=== PATIENT | female | born 2000 | race Caucasian/White ===

== ENCOUNTER 2024-03-01 18:12 | Emergency (ER) | payer OTHER, SELFPAY ==
[2024-03-01 18:13] VITALS: BP 143/92; PULSE 112; RESP 16; TEMP 36.6; O2SAT 95; BMI 25.5
--- NOTE | 2024-03-01 18:50 | CT_ITS ---
EXAM: CT ABDOMEN AND PELVIS WITH INTRAVENOUS CONTRAST CLINICAL INDICATION: abd pain -- IV PO Contrast TECHNIQUE: Helically acquired images were obtained of the abdomen and pelvis with intravenous contrast. This CT exam was performed using one or more of the following dose reduction techniques: automated exposure control, adjustment of the mA and/or kV according to patient size, and/or use of iterative reconstruction technique. CONTRAST: Oral and amp; IV Gastrografin and amp; 100mL Isovue-370 COMPARISON: No relevant prior studies available. FINDINGS: LOWER THORAX: No significant abnormality. Lung bases are clear. No cardiomegaly. No significant pericardial effusion. ABDOMEN: LIVER: No significant abnormality. Homogeneous. No focal mass. GALLBLADDER AND BILE DUCTS: No significant abnormality. No calcified gallstones. No gallbladder distention or wall edema. No intra- or extrahepatic biliary ductal dilation. PANCREAS: No significant abnormality. No focal cystic or solid mass. SPLEEN: No significant abnormality. Normal size without focal cystic or solid mass. ADRENALS: No significant abnormality. No nodules. KIDNEYS AND URETERS: No significant abnormality. Normal renal size and position. No hydronephrosis. STOMACH AND BOWEL: Large volume rectal stool retention without rectal wall thickening. No stomach or bowel distention. PELVIS: APPENDIX: There is a normal-appearing appendix in the right lower quadrant. BLADDER: No significant abnormality. REPRODUCTIVE: Right adnexal simple appearing cyst measuring approximately 3.1 cm. ACR White Paper guidelines (Guadalupe, et. al. JACR 2020;17(2):248-254) suggest no follow-up is necessary. ABDOMEN and PELVIS: INTRAPERITONEAL SPACE: No significant abnormality. No ascites or other fluid collection. No free air. BONES/JOINTS: No significant abnormality. No suspicious lytic or blastic abnormality. SOFT TISSUES: No significant abnormality. No discrete abdominal or pelvic wall hernia. VASCULATURE: No significant abnormality. Abdominal aorta is non-dilated. LYMPH NODES: No significant abnormality. No enlarged lymph nodes. CT/Abdomen/Pelvis WITH Contrast IMPRESSION: Large volume rectal stool retention without rectal wall thickening. No additional acute findings. Electronically Signed: Piero Galarza DO at 21:13 EDT ,
[2024-03-01 19:08] LABS: Mucous, Urine 0 SEEN /hpf (<or=2+); Red Blood Cells-Urine 0 SEEN /hpf (0-5); White Blood Cells 0 SEEN /hpf (0-5)
[2024-03-01 19:09] LABS: Color, Urine Straw (Yellow); Glucose, Dipstick Normal (Normal); Ketone-Dipstick Negative (Negative); Leukocyte Esterase-Dipstick Negative /ul (Negative); Nitrite-Dipstick Negative (Negative); Occult Blood-Urine Negative /ul (Negative); Protein-Dipstick Negative (Negative); Urine Bilirubin Dipstick Negative (Negative); Urine Clarity Clear (Clear); Urine Urobilinogen Normal (Normal)
[2024-03-01 19:17] LABS: Bacteria 1+ /hpf (None Seen); Squamous Epithelial Cells - UA 0-5 SEEN /hpf (5-10)
[2024-03-01 19:28] LABS: Absolute Lymphocyte Count 2.26 X10^3/uL (0.83-4.51); Absolute Neutrophil Count 4.7 X10^3/uL (2.0-7.7); Basophil# 0.05 X10^3/uL; Basophil% 0.7 % (0-1); Eosinophil# 0.08 X10^3/uL; Eosinophils% 1.1 % (0-5); Hematocrit 44.9 % (37-47); Hemoglobin 14.9 g/dL (12.0-15.0); Lymphocyte # 2.26 X10^3/ul (0.83-4.51); Lymphocyte % 29.7 % (19-41); Mean Corp Hgb Conc 33.2 g/dL (32-36); Mean Corpuscular Hgb 30.3 pg (27.0-32.0); Mean Corpuscular Volume 91.4 fL (81-99); Mean Platelet Vol. 8.8 fl (6.2-12.0); Monocyte# 0.53 X10^3/uL; NRBC Flagged by Analyzer 0 % (0-5); Neutrophil # 4.66 X10^3/uL (2.7-7.7); Neutrophil % 61.1 % (47-70); Platelet Count 335 K/mm3 (150-450); RBC Distribution Width CV 11.8 % (11.6-14.6); RBC Distribution Width SD 39.3 fl (35.1-43.9); Red Blood Count 4.91 M/mm3 (4.2-5.4); White Blood Count 7.6 K/mm3 (4.4-11.0)
[2024-03-01 19:36] LABS: Internal QC Validated? YES +Cl - CLEAR BKGD; Pregnancy, Serum, hCG Quali. NEGATIVE Negative; Record Kit Lot#, Serum Preg. 772476
[2024-03-01 19:44] LABS: AST(SGOT) 16 U/L (15-37); Alanine Aminotransfer ALT/SGPT 26 U/L (13-56); Albumin, Serum 3.9 g/dL (3.2-5.0); Alkaline Phosphatase 88 U/L (45-117); Anion Gap 4 (5-15); BUN 5 mg/dL (7-18); BUN/Creat Ratio 7.8 RATIO (10-20); Calcium,Total 9.2 mg/dL (8.5-10.1); Chloride 105 mmol/L (98-107); Creatinine, Serum 0.64 mg/dL (0.55-1.02); EST Glomerular Filtration Rate 124 mL/min (>60); Est Glom Filt Rate - Afr Amer 151 mL/min (>60); Estimated Creatinine Clearance 141.11 ml/min; Glucose 97 mg/dL (74-106); Lipase 22 U/L (13-75); Potassium 3.6 mmol/L (3.5-5.1); Protein, Total 7.9 g/dL (6.4-8.2); Sodium Level 138 mmol/L (136-145)
[2024-03-01 20:13] VITALS: BP 128/74; PULSE 105; RESP 16; TEMP 36.8; O2SAT 100
--- NOTE | 2024-03-01 20:50 | EX.ED.DYSGE1 ---
HPI History of Present Illness Chief Complaint: Abd Pain Informant: patient Narrative Narrative: Patient presents secondary to abdominal pain. She states her whole life she has had problems with abdominal pain. It is been worsening over the past couple of months. Tonight she had pain that presented as a wave across her abdomen and up into her chest that took her breath away. This is what prompted her to come to the emergency room tonight. She has never been evaluated for her abdominal pain. She denies fever or chills. She denies urinary symptoms. [facility] Medical History Anxiety Depression Home Medications ?Medication ?Instructions ?Recorded ?Last Taken ?Type NK 03/01/24 Unknown History polyethylene glycol 3350 17 17 g PO DAILY PRN constipation 03/01/24 Unknown Rx gram/dose oral powder (Miralax) #119 grams Allergy/AdvReac Type Severity Reaction Status Date / Time No Known Allergies Allergy Verified 03/01/24 18:16 Family History Other Diabetes Hypertension Surgical History no surgical history Social History Smoking Status: Never smoker ROS ROS ED Constitutional Constitutional ED: Denies chills or fever(s) Eyes Eyes: Denies discharge from eye(s) ENT ENT ED: Denies discharge from eye(s), rhinorrhea or sore throat Cardiovascular Cardiovascular: Denies chest pain Respiratory/Chest Respiratory/Chest: Denies cough or dyspnea Gastrointestinal Gastrointestinal: Reports abdominal pain; Denies diarrhea, nausea or vomiting Genitourinary Genitourinary ED: Denies dysuria or hematuria Musculoskeletal Musculoskeletal: Denies back pain or extremity pain Integumentary Denies Abrasions or rash Neurologic Neurologic: Denies headache(s) or weakness Psychiatric Psychiatric: Reports anxiety; Denies depression Allergic/Immunologic Allergic/Immunologic ED: Denies lip swelling or urticaria EXAM Physical Exam Const Vital Signs: 03/01/24 18:13 03/01/24 20:13 03/01/24 22:12 Temperature 98 F 98.3 F Temperature Source Temporal Oral Pulse Rate 112 H 105 H 91 Respiratory Rate 16 16 16 Blood Pressure 143/92 H 128/74 H Blood Pressure Mean 109 92 Pulse Ox 95 100 99 Oxygen Delivery Method Room Air Room Air Room Air 03/01/24 22:12 Temperature 98.3 F Temperature Source Pulse Rate 91 Respiratory Rate 16 Blood Pressure 120/61 Blood Pressure Mean 80 Pulse Ox 99 Oxygen Delivery Method Positive well nourished and well developed General Appearance ED: well developed HEENT Reports moist mucous membranes Eyes EOMs intact bilaterally Chest Wall inspection of chest normal and palpation of chest normal Resp normal respiratory effort and clear to auscultation bilaterally Cardio regular rate and regular rhythm GI GI Narrative: Abdomen soft with mild diffuse tenderness. No guarding or rebound. No palpable masses. Hypoactive bowel sounds are noted. Back/Spine no CVA tenderness Extremity normal to inspection Neuro oriented x3 and no sensory deficits noted Motor Exam: strength 5/5 throughout Psych Mood & Affect: tearful Skin no rashes or lesions noted MDM MDM MDM Narrative Medical decision making narrative: IV line established. Patient declines anything for pain. Labwork obtained to evaluate for leukocytosis, anemia, and electrolyte derangement. Urinalysis obtained to evaluate for infection/hematuria. CT scan of the abdomen and pelvis with p.o. and IV contrast will be obtained to evaluate for any evidence of ulcerative colitis, Crohn's, IBS, appendicitis. History & Record Review Discussion w/independent historian: Patient and Family Lab Data Attestation: I reviewed the patient's lab results. Labs: Laboratory Results - last 24 hr 03/01/24 03/01/24 19:00 19:08 WBC 7.6 RBC 4.91 Hgb 14.9 Hct 44.9 MCV 91.4 MCH 30.3 MCHC 33.2 RDW Std Deviation 39.3 RDW Coeff of Micaela 11.8 Plt Count 335 MPV 8.8 Immature Gran % (Auto) 0.400 Neut % (Auto) 61.1 Lymph % (Auto) 29.7 [place] % (Auto) 7.0 Eos % (Auto) 1.1 Baso % (Auto) 0.7 Absolute Neuts (auto) 4.7 Absolute Lymphs (auto) 2.26 Nucleated RBC % 0 Sodium 138 Potassium 3.6 Chloride 105 Carbon Dioxide 29.0 Anion Gap 4 L BUN 5 L Creatinine 0.64 Estim Creat Clear Calc 141.11 Est GFR (MDRD) Af Amer 151 Est GFR (MDRD) Non-Af 124 BUN/Creatinine Ratio 7.8 L Glucose 97 Calcium 9.2 Total Bilirubin 1.20 H Direct Bilirubin 0.30 AST 16 ALT 26 Alkaline Phosphatase 88 Total Protein 7.9 Albumin 3.9 Globulin 4.0 Lipase 22 Serum , Qual NEGATIVE Urine Color Straw Urine Clarity Clear Urine pH 7.0 Ur Specific Jenners 1.010 Urine Protein Negative Urine Glucose (UA) Normal Urine Ketones Negative Urine Occult Blood Negative Urine Nitrite Negative Urine Bilirubin Negative Urine Urobilinogen Normal Ur Leukocyte Esterase Negative Urine RBC 0 SEEN Urine WBC 0 SEEN Ur Squamous Epith Cells 0-5 SEEN Urine Bacteria 1+ Urine Mucus 0 SEEN Radiography Diagnostic Testing: Clinical Impression(s) from Imaging Studies Abdomen/Pelvis CT 03/01/24 18:50 IMPRESSION: Large volume rectal stool retention without rectal wall thickening. No additional acute findings. Electronically Signed: Piero Galarza DO at 21:13 EDT , Treatment and Re-Evaluation :: CBC was normal white count 7.6 with a hemoglobin of 14.9. Normal differential. Chemistry studies unremarkable. LFTs significant only for a total bili of 1.2. Lipase is normal at 22. test is negative. Urinalysis reveals 1+ bacteria with 0-5 epithelial cells and no white cells. No nitrites are appreciated. CT scan of the abdomen and pelvis with contrast reveals large volume of rectal stool retention without rectal wall thickening. No additional acute findings. Test results discussed with the patient. I have written her a prescription for MiraLAX. I will also refer her to GI for follow-up as needed as she does report a longstanding history of abdominal pain problems. Patient comfortable with the plan. Return instructions given. Discharge Plan Triage Chief Complaint: Abd Pain ED Provider: Madison Angulo Dx/Rx/DC Orders Clinical Impression: Abdominal pain, Constipation Instructions: ED Abdominal Pain Unkn Cause Fem, ED Constipation (Adult) Prescriptions: New polyethylene glycol 3350 [Miralax] 17 gram/dose powder 17 g PO DAILY PRN (Reason: constipation) Qty: 119 0RF No Action NK Primary Care Provider: Care Physician,No Primary Referrals: Emanuel Jacobson DO [Med Staff - Active Staff] - As Needed Care Physician,No Primary [Primary Care Provider] - Print Language: Yoruba Disposition Disposition: Home, Self Care Discharge Date/Time: 03/01/24 22:15
[2024-03-01 22:12] VITALS: BP 120/61; PULSE 91; RESP 16; TEMP 36.8; O2SAT 99
== END 2024-03-01 22:15 | disposition home or self-care (01) ==
PROVIDERS: Emergency Provider Emergency Medicine; Visit Provider Emergency Medicine
DX: K59.00 Constipation, unspecified (principal); R10.9 Unspecified abdominal pain
CPT/HCPCS: 74177; 80048; 80076; 81001; 83690; 84703; 85025; 99283; Q9967

== ENCOUNTER → 2024-11-11 | Outpatient (CLI) | payer OTHER, SELFPAY ==
[2024-11-11 10:56] LABS: Erythrocyte Sedimentation Rate 8 mm/hr (0-30)
[2024-11-11 10:58] LABS: Absolute Lymphocyte Count 1.88 X10^3/uL (0.83-4.51); Absolute Neutrophil Count 2.4 X10^3/uL (2.0-7.7); Basophil# 0.04 X10^3/uL; Basophil% 0.8 % (0-1); Eosinophil# 0.06 X10^3/uL; Eosinophils% 1.2 % (0-5); Hemoglobin 13.6 g/dL (12.0-15.0); Lymphocyte # 1.88 X10^3/ul (0.83-4.51); Mean Corp Hgb Conc 33.2 g/dL (32-36); Mean Corpuscular Hgb 30.9 pg (27.0-32.0); Mean Corpuscular Volume 93.2 fL (81-99); Monocyte# 0.42 X10^3/uL; Monocyte% 8.7 % (0-10); NRBC Flagged by Analyzer 0 % (0-5); Neutrophil # 2.41 X10^3/uL (2.7-7.7); Neutrophil % 50.1 % (47-70); Platelet Count 309 K/mm3 (150-450); RBC Distribution Width CV 11.7 % (11.6-14.6); RBC Distribution Width SD 39.9 fl (35.1-43.9); White Blood Count 4.8 K/mm3 (4.4-11.0)
[2024-11-11 12:51] LABS: ALB/GLOB Ratio 1.5 RATIO (0.9-2.4); AST(SGOT) 19 U/L (<=31); Alanine Aminotransfer ALT/SGPT 15 U/L (<=34); Albumin, Serum 4.5 g/dL (3.5-5.0); Alkaline Phosphatase 87 U/L (35-104); Anion Gap 11 (5-15); BUN 8 mg/dL (4-19); BUN/Creat Ratio 12.4 RATIO (10-20); Calcium,Total 9.4 mg/dL (7.6-11.0); Carbon Dioxide 24.8 mmol/L (21.0-32.0); Chloride 106 mmol/L (98-108); Creatinine, Serum 0.64 mg/dL (0.70-1.20); EST Glomerular Filtration Rate 128 (>60); Glucose 95 mg/dL (70-99); Potassium 4.2 mmol/L (3.3-5.1); Protein, Total 7.6 g/dL (5.9-8.4); Sodium Level 141 mmol/L (133-145); Thyroid Stim Hormone (TSH) 0.675 uIU/mL (0.300-4.200); Total Bilirubin 1.23 mg/dL (0.00-1.30)
[2024-11-11 13:04] LABS: CRP < 3.00 mg/L (0.0-3.0)
[2024-11-14 16:08] LABS: Endomysial Antibody IgA Negative (Negative); Immunoglobulin A 311 mg/dL (87-352); t-Transglutaminase IgA <2 U/mL (0-3)
== END | disposition home or self-care (01) ==
PROVIDERS: PCP Nurse Practitioner Family; Referring Provider Student in an Organized Health Care Education/Training Program; Visit Provider Student in an Organized Health Care Education/Training Program
DX: K59.09 Other constipation (principal)
CPT/HCPCS: 36415; 80053; 82784; 83516; 84443; 85025; 85652; 86003; 86005; 86140; 86255

== ENCOUNTER → 2024-11-22 | Outpatient (CLI) | payer OTHER, SELFPAY ==
[2024-11-25 02:07] LABS: Calprotectin, Stool 14 ug/g (0-120)
== END | disposition home or self-care (01) ==
LOC: LABSPEC 16:25
PROVIDERS: PCP Nurse Practitioner Family; Referring Provider Student in an Organized Health Care Education/Training Program; Visit Provider Student in an Organized Health Care Education/Training Program
DX: K59.09 Other constipation (principal)
CPT/HCPCS: 83993

== ENCOUNTER → 2025-04-11 | Outpatient (CLI) | payer OTHER, SELFPAY ==
--- NOTE | 2025-04-11 10:24 | RAD_ITS ---
EXAM: XR Cervical Spine, 2 or 3 Views CLINICAL INDICATION: R NECK PAIN, UNSURE OF INJURY TECHNIQUE: Frontal and lateral views of the cervical spine. COMPARISON: No relevant prior studies available. FINDINGS: VERTEBRAE: Unremarkable. No definite fracture. Normal alignment. DISC SPACES: No acute findings. No significant narrowing. SOFT TISSUES: Unremarkable. RAD/Cerv Spine 2 or 3 Views IMPRESSION: No acute fracture. Reading [facility]
--- OUTSIDE RECORDS SUMMARY | 2025-04-11 18:23 | XMS RPT_ITS | CCD ---
Author Organization [facility] Providers Care Podiatry Teacher Name Role Phone CHRISTINA GIBSON Unavailable Unavailable REFERRED, SELF Unavailable Unavailable JACQUELYN LA Unavailable Unavailable ECTOR ESPOSITO Unavailable Unavailable REFERRED, SELF Unavailable Unavailable JACQUELYN LA Unavailable Unavailable REFERRED, SELF Unavailable Unavailable JACQUELYN LA Unavailable Unavailable AMPARO BARNES Unavailable Unavailable Care Physician, No Primary Primary Care Provider Unavailable Care Physician, No Primary Referring Provider Un available Fabiola Meier Attending Provider Jeannie SENIOR INTERACTION DESIGNER-CPalak Primary Care Provider Fabiola Meier Referring Provider Quinn Schneider Attending Unavailable Care Physician, No Primary Primary Care Unava ilable Care Physician, No Primary Referring Unava ilable Fabiola Griggs Attending Unavailable Care Physician, No Primary Primary Care Unava ilable Care Physician, No Primary Referring Unava ilable Fabiola Griggs Attending Unavailable Jeannie SENIOR INTERACTION DESIGNERPalak Primary Care Unavailable Palak Nielson NP Referring Unavailable Fabiola Griggs Attending Unavailable Fabiola Griggs Referring Unavailable Palak Nielson NP Primary Care Unavailable Fabiola Griggs Attending Unavailable AtanasFabiola jones Referring Unavailable Palak Nielson NP Primary Care Unavailable Madison Angulo Attending Unavailable Care Physician, No Primary Primary Care Unava ilable PALAK NIELSON CHEMICAL ENGINEERING INTERN Admitting Unavailable PALAK NIELSON CHEMICAL ENGINEERING INTERN Attending Unavailable PALAK NIELSON CHEMICAL ENGINEERING INTERN Consulting Unavailable PALAK NIELSON CHEMICAL ENGINEERING INTERN Primary Care Unavailable PROVIDER, UNKNOWN Consulting Unavailable PROVIDER, UNKNOWN Consulting Unavailable Jeannie SENIOR INTERACTION DESIGNER-CPalak Primary Care Provider Jeannie SENIOR INTERACTION DESIGNER-CaPlak Referring Provider Fabiola Meier Attending Provider Moomaw SENIOR INTERACTION DESIGNER-C, Galdino Attending Provider [phone] Medications Current Medications Medication Drug Class(es) Dates Sig (Normalized) Sig (Original) cyclobenzaprine hydrochloride 10 mg oral tablet (1 source) Muscle Relaxant Start: 04-11-2025 take 1 tablet by mouth three times daily as needed for muscle spasms Cyclobenzaprine 10 mg tablet Active 10 mg PO THREE TIMES A DAY as needed for muscle spasm 14 April 11, 2025 12:00am dicyclomine hydrochloride 10 mg oral capsule (3 sources) Anticholinergic Start: 11-11-2024 take 1 capsule by mouth twice daily as needed for pain Dicyclomine 10 mg capsule Active 10 mg PO TWICE A DAY as needed for abdominal pain 30 November 11, 2024 12:00am predniSONE 50 mg oral tablet (1 source) Start: 04-11-2025 take 1 tablet by mouth once daily Prednisone 50 mg tablet Active 50 mg PO daily 5 April 11, 2025 12:00am Completed/Discontinued Medications Medication Drug Class(es) Dates Sig (Normalized) Sig (Original) benzonatate 100 mg oral capsule (3 sources) Non-narcotic Antitussive Start: 4 End: 5 take 1 capsule by mouth three times daily as needed for cough Benzonatate 100 mg capsule Discontinued 100 mg PO THREE TIMES A DAY as needed for cough 20 April 20, 2024 12:00am December 30, 2024 9:42am linaclotide 0.072 mg oral capsule (3 sources) Guanylate Cyclase-C Agonist Start: 5 End: 5 take 1 capsule by mouth once daily in the morning Linaclotide (Linzess) 72 mcg capsule Discontinued 72 ug PO EVERY MORNING 30 November 11, 2024 12:00am November 11, 2024 11:53am lubiprostone 0.008 mg oral capsule (3 sources) Chloride Channel Activator Start: 5 End: 5 take 1 capsule by mouth twice daily Lubiprostone (Amitiza) 8 mcg capsule Discontinued 8 ug PO TWICE A DAY 60 November 11, 2024 12:00am December 30, 2024 9:41am methylPREDNISolone 4 mg oral tablet (3 sources) Corticosteroid Start: 4 End: 5 take 1 tablet by mouth once Methylprednisolone (Medrol (Cristofer)) 4 mg tablets,dose pack Discontinued 0 PO per package directions 21 0 April 20, 2024 12:00am December 30, 2024 9:41am PO PER PKG DIR polyethylene glycol 3350 57504 mg powder for oral solution (3 sources) Osmotic Laxative Start: 4 End: 5 Polyethylene Glycol 3350 (Miralax) 17 gram/dose powder Discontinued 17 g PO DAILY as needed for constipation 119 0 March 01, 2024 10:03pm November 11, 2024 9:57am Problems Problem Classification Problem Date Documented Da te Episodic/Chronic Abdominal pain (4 sources) Abdominal pain; Translations: [Unspecified abdominal pain] Onset: 03-17-2024 03-09-2024 Episodic Anxiety disorders (1 source) Generalized anxiety disorder; Translations: [Generalized anxiety disorder] Onset: 03-03-2025 Chronic Mood disorders (1 source) Major depressive disorder, recurrent, mild; Translations: [Major depressive disorder, recurrent, mild] Onset: 03-03-2025 Chronic Other gastrointestinal disorders (2 sources) Irritable bowel syndrome; Translations: [Irritable bowel syndrome without diarrhea] 11-11-2024 Chronic Other gastrointestinal disorders (1 source) Mixed irritable bowel syndrome; Translations: [Mixed irritable bowel syndrome] Onset: 03-03-2025 Chronic Other gastrointestinal disorders (6 sources) Chronic constipation; Translations: [Other constipation] 11-11-2024 Episodic Other gastrointestinal disorders (3 sources) Constipation; Translations: [Constipation, unspecified] 03-09-2024 Episodic Other gastrointestinal disorders (1 source) Other constipation; Translations: [Other constipation] Onset: 11-28-2024 Episodic Other screening for suspected conditions (not mental disorders or infectious disease) (2 sources) Encounter for screening for diabetes mellitus; Translations: [Encounter for screening for cardiovascular disorders] Onset: 03-03-2025 Episodic Residual codes; unclassified (1 source) Other general symptoms and signs; Translations: [Other general symptoms and signs] Onset: 03-03-2025 Episodic Residual codes; unclassified (1 source) Sleep disorder, unspecified; Translations: [Sleep disorder, unspecified] Onset: 03-03-2025 Episodic Sprains and strains (1 source) Strain of right trapezius muscle; Translations: [Strain of other muscles, fascia and tendons at shoulder and upper arm level, right arm, initial encounter] 04-11-2025 Episodic Results Test Name Value Interpretation Reference Range Facility Gastroenterology Visit Repor ton 12-30-2024 Gastroenterology Visit Report [facility] Gastroenterology [address] [place] [address] OFFICE VISIT Date of Service: 12/30/24 MR#: [id number] Acct: [id number] Name: LACHELLE MONROE Rep #: [id number] : 2000 Provider: PARAS Bernal Age/Sex: 24/F Location: [facility] [place] Status: Signed Intake Vital Signs 04/20/24 12:25 Height 5 ft 6 in Weight: 157 lb 4 oz BMI 25.3 BP 112/66 Blood Pressure Location Rt brachial Position Sitting Respiration 16 Pulse 99 Pulse Source NIBP Temp 99.1 F Temp Source Temporal Pulse Oximetry (%) 98 Oxygen Delivery Method room air Intake Visit Reasons: follow up Chief Complaint: constipation Allergies No Known Allergies Allergy (Verified 12/30/24 09:41) Medications ???Medication ???Instructions ???Recorded ???Confirmed ???Type dicyclomine 10 mg capsule 10 mg PO BID PRN abdominal pain 12/30/24 Rx #30 caps Nurse's Note: Patient is here for a follow up states she hasn't had any terrible pain issues she is trying to eat less. Amitiza was causing dizziness, patient took it morning of the bad pain ended up leaving work due to side effects. [facility] History Anxiety Depression Surgical History No significant past surgical history Family History Other Diabetes Hypertension Social History Smoking Status: Never smoker HPI HPI Chief Complaint: constipation Details: LACHELLE MONROE, is a 24 F who presents to the office today for f/u. BGI established 4.4.25 with constipation and abdominal pain for a few years. Having bm every other day but is small and incomplete. Refractory to miralax. Occasional abd cramping and loose stool she feels related to anxiety. No hx of EGD or colonoscopy. Start Linzess 72 mcg and dicyclomine PRN. *INS denied Linzess, Amitiza started instead Biochemical work up .12.02; CBC, CMP, ESR, CRP Food allergy, Celiac all without abnormality Stool 11.22.24; Calprotectin normal, OV 12.30.24 Pt has been doing well. She started Amitiza however she had dizziness and headache after taking one dose so she discontinued it. SHe continues to have constipation with a bm every day to every other day. She has not had to take the dicyclomine at all. She has some nausea but no vomiting. She notes she had one day of burning RLQ pain which eventually resolved Pt denies diarrhea, vomiting, heartburn or blood in her stool. ROS Const Constitutional: Positive for fatigue Eyes Eyes: No change in vision ENT ENT: No abnormal hearing, difficulty swallowing, mouth lesions, tongue swelling or throat swelling Resp Respiratory: No cough or shortness of breath Cardio Cardiology: Positive for leg pain with exertion Gastro GI: Positive for abdominal pain, bloating, constipation and Blood in stool; No difficulty swallowing Genitourinary-Female: No difficulty urinating or burning urination Musc Musculoskeletal: Positive for joint pain, muscle cramps, restless legs and leg pain with exertion Skin Skin: No hair loss in leg, yellowing of the eye, itchy eyes, rash, skin ulcer or skin swelling Neuro Neurology: Positive for restless legs; No abnormal hearing Psych Psychiatric: Positive for anxiety, Positive for depression and Positive for inattentiveness Endo Endocrine: Positive for fatigue Aller/Imm Allergy/Immunologic: No itchy eyes, throat swelling or tongue swelling Lencho/Lymp Hematologic/Lymphatic: Positive for easy bruising Exam Const General: cooperative and healthy appearing [facility] Head: normal to inspection Eyes General: appearance normal, both eyes and all related structures Neck Neck: normal visual inspection Chest Chest palpation inspection: normal inspection of the chest Resp Effort Inspection: normal respiratory effort and able to speak in complete sentences Cardio Rate: regular rate Rhythm: regular rhythm GI Inspection: normal to inspection Auscultation: normal bowel sounds Palpation: soft, no hepatosplenomegaly, no guarding and nontender Assessment and Plan Assessment and Plan (1) Chronic constipation: Status: Chronic Plan: Lachelle is a 24 yo female pt here today for f/u regarding her constipation. Work up including CBC, CMP, food allergies, celiac and calprotectin was all normal. Her constipation is likely related to IBS-C. Pt was prescribed Amitiza however she had side effects including dizziness and headache so she discontinued it. She continues to have constipation with a bm daily to every other day. Pt is nervous about taking medications therefore I have recommended taking miralax and fiber supple (more content not included)... Normal [facility] Calprotectin, Stoolon [address] 14 ug/g Normal 0-120 [facility] Comment on above: Result Comment: Conc entration Interpretation Follow-Up < 5 - 50 ug/g Normal None >50 -120 ug/g Borderline Re-evaluate in 4-6 weeks >120 ug/g Abnormal Repeat as clinically indicated Performed at: [facility] [id number] [place], [place] [id number] Nurse'S Assistant: Kenny Dangelo MD, Phone: [phone] Performed By: #### L 7000.0700 #### [facility] [address] [place], [place], [address] Calprotectin stoolOrdered By : Fabiola Griggs on 11-22-2024 Stool Calprotectin 14 ug/g 0-120 [facility] Comment on above: Concentration Interp retation Follow-Up< 5 - 50 ug/g Normal None>50 -120 ug/g Borderline Re-evaluate in 4-6 weeks >120 ug/g Abnormal Repeat as clinically indicatedPerformed at: [facility] [address] [place], [place] [id number] Director: Kenny Dangelo MD, Phone: [phone] [id number] 11-22-2024 BEEF <0.10 Normal Class 0 [facility] Comment on above: Performed By: #### L 500.4050, L501.9520, L100.0100, L5500.0550, L3410.2400, L101.9900, L501.6710 ####[facility] [address] [place], [address] CHOCOLATE <0.10 Normal Class 0 [facility] Comment on above: Performed By: #### L 500.4050, L501.9520, L100.0100, L5500.0550, L3410.2400, L101.9900, L501.6710 ####[facility] [address] [place], [address] CODFISH <0.10 Normal Class 0 [facility] Comment on above: Performed By: #### L 500.4050, L501.9520, L100.0100, L5500.0550, L3410.2400, L101.9900, L501.6710 ####[facility] [address] [place], [place], [id number] COMMENT Comment Normal . [facility] Comment on above: Result Comment: Tess shen of Specific IgE Class Description of Class ----- < 0.10 0 Negative 0.10 - 0.31 0/I Equivocal/Low 0.32 - 0.55 I Low 0.56 - 1.40 II Moderate 1.41 - 3.90 III High 3.91 - 19.00 IV Very High 19.01 - 100.00 V Very High >100.00 Very High Performed By: #### L 500.4050, L501.9520, L100.0100, L5500.0550, L3410.2400, L101.9900, L501.6710 ####[facility] [address] [place], [address] CORN <0.10 Normal Class 0 [facility] Comment on above: Performed By: #### L 500.4050, L501.9520, L100.0100, L5500.0550, L3410.2400, L101.9900, L501.6710 ####[facility] [address] [place], [address] EGG, WHOLE <0.10 Normal Class 0 [facility] Comment on above: Result Comment: Perf ormed at: [facility] [address] [id number] Nurse'S Assistant: Kenny Dangelo MD, Phone: [phone] Performed By: #### L 500.4050, L501.9520, L100.0100, L5500.0550, L3410.2400, L101.9900, L501.6710 ####[facility] [address] [place], [address] MILK (COW) <0.10 Normal Class 0 [facility] Comment on above: Performed By: #### L 500.4050, L501.9520, L100.0100, L5500.0550, L3410.2400, L101.9900, L501.6710 ####[facility] [address] [place], [address] MUSSELS <0.10 Normal Class 0 [facility] Comment on above: Performed By: #### L 500.4050, L501.9520, L100.0100, L5500.0550, L3410.2400, L101.9900, L501.6710 ####[facility] [address] [place], [address] PEANUT <0.10 Normal Class 0 [facility] Comment on above: Performed By: #### L 500.4050, L501.9520, L100.0100, L5500.0550, L3410.2400, L101.9900, L501.6710 ####[facility] [address] [place], [address] PORK <0.10 Normal Class 0 [facility] Comment on above: Performed By: #### L 500.4050, L501.9520, L100.0100, L5500.0550, L3410.2400, L101.9900, L501.6710 ####[facility] [address] [place], [address] SALMON <0.10 Normal Class 0 [facility] Comment on above: Performed By: #### L 500.4050, L501.9520, L100.0100, L5500.0550, L3410.2400, L101.9900, L501.6710 ####[facility] [address] [place], [address] SHRIMP <0.10 Normal Class 0 [facility] Comment on above: Performed By: #### L 500.4050, L501.9520, L100.0100, L5500.0550, L3410.2400, L101.9900, L501.6710 ####[facility] [address] [place], [place], [phone] SOYBEAN <0.10 Normal Class 0 [facility] Comment on above: Performed By: #### L 500.4050, L501.9520, L100.0100, L5500.0550, L3410.2400, L101.9900, L501.6710 ####[facility] [address] [place], [place], [phone] TUNA <0.10 Normal Class 0 [facility] Comment on above: Performed By: #### L 500.4050, L501.9520, L100.0100, L5500.0550, L3410.2400, L101.9900, L501.6710 ####[facility] [address] [place], [address] WHEAT <0.10 Normal Class 0 [facility] Comment on above: Performed By: #### L 500.4050, L501.9520, L100.0100, L5500.0550, L3410.2400, L101.9900, L501.6710 ####[facility] [address] [place], [place], [id number] Celiac Disease Profileon ENDOMYSIAL IGA Negative Normal Negative [facility] Comment on above: Performed By: #### L 500.4050, L501.9520, L100.0100, L5500.0550, L3410.2400, L101.9900, L501.6710 ####[facility] [address] [place], [address] IMMUNOGLOB A QN 311 mg/dL Normal 87-352 [facility] Comment on above: Result Comment: Perf ormed at: [facility] [address] [id number] Nurse'S Assistant: Praveen Cary PhD, Phone: [phone] Performed By: #### L 500.4050, L501.9520, L100.0100, L5500.0550, L3410.2400, L101.9900, L501.6710 ####[facility] [address] [place], [address] tTG IGA <2 Normal 0-3 [facility] Comment on above: Result Comment: Nega tive 0 - 3 Weak Positive 4 - 10 Positive >10 Tissue Transglutaminase (tTG) has been identified as the endomysial antigen. Studies have demonstr- ated that endomysial IgA antibodies have over 99% specificity for gluten sensitive enteropathy. Performed By: #### L 500.4050, L501.9520, L100.0100, L5500.0550, L3410.2400, L101.9900, L501.6710 ####[facility] [address] [place], [address] Absolute neutrophil countOrd ered By: Fabiola Griggs on 11-11-2024 Neutrophils (Bld) [#/Vol] 2.4 10*3/uL 2.0-7.7 [facility] Anion gap in Serum or Plasma Ordered By: Fabiola Griggs on 11-11-2024 Anion gap [Moles/Vol] 11 mmol/L 5-15 [facility] BUN/creatinine ratioOrdered By: Fabiola Griggs on 11-11-2024 Urea nitrogen/Creatinine [Mass ratio] 12.4 mg/mg 10-20 [facility] Basophil percentageOrdered B y: Fabiola Griggs on 11-11-2024 Basophils/100 WBC (Bld) 0.8 % 0-1 [facility] Beef IgE Qn (S)Ordered By: Nicky Griggs on 11-11-2024 Beef Allergen (RAST) <0.10 kU/L Class 0 [facility] Bilirubin, totalOrdered By: Fabiola Griggs on 11-11-2024 Bilirubin [Mass/Vol] 1.23 mg/dL 0.00-1.30 [facility] CBC W/Diff, Automatedon Absolute Lymph 1.88 X10 3/uL Normal 0.83-4.51 [facility] Comment on above: Performed By: #### L 500.4050, L501.9520, L100.0100, L5500.0550, L3410.2400, L101.9900, L501.6710 #### [facility] [address] [place], [address] Absolute Neut 2.4 X10 3/uL Normal 2.0-7.7 [facility] Comment on above: Performed By: #### L 500.4050, L501.9520, L100.0100, L5500.0550, L3410.2400, L101.9900, L501.6710 #### [facility] [address] [place], [address] Basophils/100 WBC (Bld) 0.8 % Normal 0-1 [facility] Comment on above: Performed By: #### L 500.4050, L501.9520, L100.0100, L5500.0550, L3410.2400, L101.9900, L501.6710 #### [facility] [address] [place], [address] Eosinophils/100 WBC (Bld) 1.2 % Normal 0-5 [facility] Comment on above: Performed By: #### L 500.4050, L501.9520, L100.0100, L5500.0550, L3410.2400, L101.9900, L501.6710 #### [facility] [address] [place], [address] Erythrocyte distribution width (RBC) [Ratio] 11.7 % Normal 11.6-14.6 [facility] Comment on above: Performed By: #### L 500.4050, L501.9520, L100.0100, L5500.0550, L3410.2400, L101.9900, L501.6710 #### [facility] [address] [place], [address] Hematocrit (Bld) [Volume fraction] 41.0 % Normal 37-47 [facility] Comment on above: Performed By: #### L 500.4050, L501.9520, L100.0100, L5500.0550, L3410.2400, L101.9900, L501.6710 #### [facility] [address] [place], [address] Hemoglobin (Bld) [Mass/Vol] 13.6 g/dL Normal 12.0-15.0 [facility] Comment on above: Performed By: #### L 500.4050, L501.9520, L100.0100, L5500.0550, L3410.2400, L101.9900, L501.6710 #### [facility] [address] [place], [address] IG% 0.200 Normal 0.0-0.9 [facility] Comment on above: Result Comment: IG% - Immature Granulocytes (promyelocytes, myelocytes and metamyelocytes) > 1% indicates that a LEFT SHIFT is Present. Performed By: #### L 500.4050, L501.9520, L100.0100, L5500.0550, L3410.2400, L101.9900, L501.6710 #### [facility] [address] [place], [address] Lymphocytes/100 WBC (Bld) 39.0 % Normal 19-41 [facility] Comment on above: Performed By: #### L 500.4050, L501.9520, L100.0100, L5500.0550, L3410.2400, L101.9900, L501.6710 #### [facility] [address] [place], [address] MCH (RBC) [Entitic mass] 30.9 pg Normal 27.0-32.0 [facility] Comment on above: Performed By: #### L 500.4050, L501.9520, L100.0100, L5500.0550, L3410.2400, L101.9900, L501.6710 #### [facility] [address] [place], [address] MCHC (RBC) [Mass/Vol] 33.2 g/dL Normal 32-36 [facility] Comment on above: Performed By: #### L 500.4050, L501.9520, L100.0100, L5500.0550, L3410.2400, L101.9900, L501.6710 #### [facility] [address] [place], [address] MCV (RBC) [Entitic vol] 93.2 fL Normal 81-99 [facility] Comment on above: Performed By: #### L 500.4050, L501.9520, L100.0100, L5500.0550, L3410.2400, L101.9900, L501.6710 #### [facility] [address] [place], [address] Monocytes/100 WBC (Bld) 8.7 % Normal 0-10 [facility] Comment on above: Performed By: #### L 500.4050, L501.9520, L100.0100, L5500.0550, L3410.2400, L101.9900, L501.6710 #### [facility] [address] [place], [address] Neutrophils/100 WBC (Bld) 50.1 % Normal 47-70 [facility] Comment on above: Performed By: #### L 500.4050, L501.9520, L100.0100, L5500.0550, L3410.2400, L101.9900, L501.6710 #### [facility] [address] [place], [address] Nucleated RBC (Bld) [#/Vol] 0 10*3/uL Normal 0-5 [facility] Comment on above: Performed By: #### L 500.4050, L501.9520, L100.0100, L5500.0550, L3410.2400, L101.9900, L501.6710 #### [facility] [address] [place], [address] Platelet mean volume (Bld) [Entitic vol] 9.0 fL Normal 6.2-12.0 [facility] Comment on above: Performed By: #### L 500.4050, L501.9520, L100.0100, L5500.0550, L3410.2400, L101.9900, L501.6710 #### [facility] [address] [place], [address] Platelets (Bld) [#/Vol] 309 10*3/uL Normal 150-450 [facility] Comment on above: Performed By: #### L 500.4050, L501.9520, L100.0100, L5500.0550, L3410.2400, L101.9900, L501.6710 #### [facility] [address] [place], [address] RBC (Bld) [#/Vol] 4.40 10*6/uL Normal 4.2-5.4 [facility] Comment on above: Performed By: #### L 500.4050, L501.9520, L100.0100, L5500.0550, L3410.2400, L101.9900, L501.6710 #### [facility] [address] [place], [address] RDW SD 39.9 fl Normal 35.1-43.9 [facility] Comment on above: Performed By: #### L 500.4050, L501.9520, L100.0100, L5500.0550, L3410.2400, L101.9900, L501.6710 #### [facility] [address] [place], [address] WBC (Bld) [#/Vol] 4.8 10*3/uL Normal 4.4-11.0 [facility] Comment on above: Performed By: #### L 500.4050, L501.9520, L100.0100, L5500.0550, L3410.2400, L101.9900, L501.6710 #### [facility] [address] [place], [address] CRPon 11-11-2024 C-REACTIVE PROT < 3.00 Normal 0.0-3.0 [facility] Comment on above: Performed By: #### L 500.4050, L501.9520, L100.0100, L5500.0550, L3410.2400, L101.9900, L501.6710 #### [facility] [address] [place], [place], [id number] CRP [Mass/Vol]Ordered By: Marie Griggs on 11-11-2024 C-Reactive Protein Extended Range < 3.00 mg/L 0.0-3.0 [facility] Carbon dioxide, total [Moles /volume] in Central venous bloodOrdered By: Fabiola Griggs on 11-11-2024 CO2 [Moles/Vol] 24.8 mmol/L 21.0-32.0 [facility] Chloride assayOrdered By: Marie Griggs on 11-11-2024 Chloride [Moles/Vol] 106 mmol/L 98-108 [facility] Chocolate IgE serumOrdered B y: Fabiola Griggs on 11-11-2024 Chocolate Allergen (RAST) <0.10 kU/L Class 0 [facility] Codfish IgE Qn (S)Ordered By : Fabiola Griggs on 11-11-2024 Codfish Allergen (RAST) <0.10 kU/L Class 0 [facility] Comprehensive Metabolic Prof ilon 11-11-2024 Albumin [Mass/Vol] 4.5 g/dL Normal 3.5-5.0 [facility] Comment on above: Performed By: #### L 500.4050, L501.9520, L100.0100, L5500.0550, L3410.2400, L101.9900, L501.6710 #### [facility] [address] [place], [place], [id number] Albumin/Globulin [Mass ratio] 1.5 {ratio} Normal 0.9-2.4 [facility] Comment on above: Performed By: #### L 500.4050, L501.9520, L100.0100, L5500.0550, L3410.2400, L101.9900, L501.6710 #### [facility] [address] [place], [place], [id number] ALK PHOS 87 U/L Normal 35-104 [facility] Comment on above: Performed By: #### L 500.4050, L501.9520, L100.0100, L5500.0550, L3410.2400, L101.9900, L501.6710 #### [facility] [address] [place], [address] ALT [Catalytic activity/Vol] 15 U/L Normal <=34 [facility] Comment on above: Performed By: #### L 500.4050, L501.9520, L100.0100, L5500.0550, L3410.2400, L101.9900, L501.6710 #### [facility] [address] [place], [address] AST [Catalytic activity/Vol] 19 U/L Normal <=31 [facility] Comment on above: Performed By: #### L 500.4050, L501.9520, L100.0100, L5500.0550, L3410.2400, L101.9900, L501.6710 #### [facility] [address] [place], [address] Bilirubin [Mass/Vol] 1.23 mg/dL Normal 0.00-1.30 [facility] Comment on above: Performed By: #### L 500.4050, L501.9520, L100.0100, L5500.0550, L3410.2400, L101.9900, L501.6710 #### [facility] [address] [place], [address] BUN/CRE 12.4 RATIO Normal 10-20 [facility] Comment on above: Performed By: #### L 500.4050, L501.9520, L100.0100, L5500.0550, L3410.2400, L101.9900, L501.6710 #### [facility] [address] [place], [address] Calcium [Mass/Vol] 9.4 mg/dL Normal 7.6-11.0 [facility] Comment on above: Performed By: #### L 500.4050, L501.9520, L100.0100, L5500.0550, L3410.2400, L101.9900, L501.6710 #### [facility] [address] [place], [address] Chloride [Moles/Vol] 106 mmol/L Normal 98-108 [facility] Comment on above: Performed By: #### L 500.4050, L501.9520, L100.0100, L5500.0550, L3410.2400, L101.9900, L501.6710 #### [facility] [address] [place], [address] CO2 [Moles/Vol] 24.8 mmol/L Normal 21.0-32.0 [facility] Comment on above: Performed By: #### L 500.4050, L501.9520, L100.0100, L5500.0550, L3410.2400, L101.9900, L501.6710 #### [facility] [address] [place], [address] Creatinine [Mass/Vol] 0.64 mg/dL Low 0.70-1.20 [facility] Comment on above: Performed By: #### L 500.4050, L501.9520, L100.0100, L5500.0550, L3410.2400, L101.9900, L501.6710 #### [facility] [address] [place], [address] GAP 11 Normal 5-15 [facility] Comment on above: Performed By: #### L 500.4050, L501.9520, L100.0100, L5500.0550, L3410.2400, L101.9900, L501.6710 #### [facility] [address] [place], [address] GFR/1.73 sq M.predicted among non-blacks MDRD (S/P/Bld) [Vol rate/Area] 128 mL/min/{1.73_m2} Normal >60 [facility] Comment on above: Result Comment: mL/m in/1.73m2 CKD-EPI Creatinine Equation (2020) Performed By: #### L 500.4050, L501.9520, L100.0100, L5500.0550, L3410.2400, L101.9900, L501.6710 #### [facility] [address] [place], [address] Globulin (S) [Mass/Vol] 3.0 g/dL Normal 2.2-4.2 [facility] Comment on above: Performed By: #### L 500.4050, L501.9520, L100.0100, L5500.0550, L3410.2400, L101.9900, L501.6710 #### [facility] [address] [place], [address] Glucose [Mass/Vol] 95 mg/dL Normal 70-99 [facility] Comment on above: Performed By: #### L 500.4050, L501.9520, L100.0100, L5500.0550, L3410.2400, L101.9900, L501.6710 #### [facility] [address] [place], [address] Potassium [Moles/Vol] 4.2 mmol/L Normal 3.3-5.1 [facility] Comment on above: Performed By: #### L 500.4050, L501.9520, L100.0100, L5500.0550, L3410.2400, L101.9900, L501.6710 #### [facility] [address] [place], [address] Sodium [Moles/Vol] 141 mmol/L Normal 133-145 [facility] Comment on above: Performed By: #### L 500.4050, L501.9520, L100.0100, L5500.0550, L3410.2400, L101.9900, L501.6710 #### [facility] [address] [place], [address] T PROT 7.6 g/dL Normal 5.9-8.4 [facility] Comment on above: Performed By: #### L 500.4050, L501.9520, L100.0100, L5500.0550, L3410.2400, L101.9900, L501.6710 #### [facility] [address] [place], [address] Urea nitrogen [Mass/Vol] 8 mg/dL Normal 4-19 [facility] Comment on above: Performed By: #### L 500.4050, L501.9520, L100.0100, L5500.0550, L3410.2400, L101.9900, L501.6710 #### [facility] [address] [place], [address] [place] IgE Qn (S)Ordered By: Nicky Griggs on 11-11-2024 [place] Allergen (RAST) <0.10 kU/L Class 0 [facility] Cow milk IgE Qn (S)Ordered B y: Fabiola Griggs on 11-11-2024 Cow's Milk Allergen <0.10 kU/L Class 0 [facility] Endomysial IgA antibody assa yOrdered By: Fabiola Griggs on 11-11-2024 Endomysial IgA Antibody Negative Negative [facility] Eosinophil percentageOrdered By: Fabiola Griggs on 11-11-2024 Eosinophils/100 WBC (Bld) 1.2 % 0-5 [facility] Erythrocyte Sed Rateon 11-11 SED RATE 8 mm/hr Normal 0-30 [facility] Comment on above: Performed By: #### L 500.4050, L501.9520, L100.0100, L5500.0550, L3410.2400, L101.9900, L501.6710 #### [facility] [address] [place], [address] Erythrocyte distribution wid th (RBC) [Ratio]Ordered By: Fabiola Griggs on 11-11-2024 Erythrocyte distribution width (RBC) [Entitic vol] 39.9 fL 35.1-43.9 [facility] Erythrocyte distribution wid th ratioOrdered By: Fabiolamaris Griggs on 11-11-2024 Erythrocyte distribution width (RBC) [Ratio] 11.7 % 11.6-14.6 [facility] Erythrocyte sedimentation ra teOrdered By: Fabiola Griggs on 11-11-2024 ESR (Bld) [Velocity] 8 mm/h 0-30 [facility] GFR/1.73 sq M.predicted ottoniel g non-blacks MDRD (S/P/Bld) [Vol rate/Area]Ordered By: Fabiola Griggs on 11-11-2024 Estimated GFR (MDRD) Non-Af Amer 128 >60 [facility] Comment on above: mL/min/1.73m2 CKD-EP I Creatinine Equation (2020) Gastroenterology Visit Repor ton 11-11-2024 Gastroenterology Visit Report [facility] [address] [place] [address] OFFICE VISIT Date of Service: 11/11/24 MR#: [id number] Acct: [id number] Name: LACHELLE MONROE Rep #: [id number] : 2000 Provider: PARAS Bernal Age/Sex: 24/F Location[place] [facility] [place] Status: Signed Intake Vital Signs 04/20/24 12:25 Height 5 ft 6 in Weight: 157 lb 4 oz BMI 25.3 BP 112/66 Blood Pressure Location Rt brachial Position Sitting Respiration 16 Pulse 99 Pulse Source NIBP Temp 99.1 F Temp Source Temporal Pulse Oximetry (%) 98 Oxygen Delivery Method room air Intake Visit Reasons: Irritable bowel syndrome Chief Complaint: constipation Allergies No Known Allergies Allergy (Verified 04/20/24 12:33) Medications ???Medication ???Instructions ???Recorded ???Confirmed ???Type benzonatate 100 mg capsule 100 mg PO TID PRN cough #20 caps 0 04/20/24 04/20/24 Rx methylprednisolone 4 mg tablets in See Rx Instructions PO PER PKG D IR 04/20/24 04/20/24 Rx a dose pack (Medrol (Cristofer)) #21 tabs dicyclomine 10 mg capsule 10 mg PO BID PRN abdominal pain 11/11/24 Rx #30 caps linaclotide 72 mcg capsule 72 mcg PO QAM #30 caps 11/11/24 Rx (Linzess) Patient : No Nurse's Note: OV 11.11.24 Pt here to establish care with [facility]. Pt reports nausea, gas, bloating, constipation, diarrhea, abdominal pain, and blood in stools. Reports bm that fluctuate between formed and loose. No prior EGD or colonoscopy. Pt states she tried miralax for constipation but didn't help. [facility] Medical History (Updated 11/11/24 @ 09:34 by Patito Anaya LPN) Anxiety Depression Surgical History (Updated 04/20/24 @ 12:34 by Carmelina Person) No significant past surgical history Family History Other Diabetes Hypertension Social History Smoking Status: Never smoker HPI HPI Chief Complaint: constipation Details: LACHELLE MONROE, is a 24 F who presents to the office today for establishment with [facility]. Patient has had issues with constipation and abdominal pain for a few years now. She has a bm every day or every other day however it is typically small and incomplete. She has tired miralax in the past but did not feel it worked well. She has also been having random episodes of severe abdominal cramping and loose stools. She feels this is related to her anxiety. She has a lot of gas pains and bloating in her abdomen in the morning. She has never had an EGD or a colonoscopy to assess these symptoms. ROS Const Constitutional: Positive for fatigue, fever(s) and weakness; No weight change ENT ENT: No difficulty swallowing Gastro GI: Positive for abdominal pain, bloating, change in bowel habits, constipation, diarrhea, heartburn, excessive flatus, Blood in stool, loose stools and nausea/dyspepsia; No belching, change in stool character, coffee ground emesis, cramping, difficulty swallowing, feeling full early, incontinent of stools, Vomiting blood/hematemesis, Black,tarry stools, pain with swallowing, vomiting or other Musc Musculoskeletal: Positive for joint pain, back pain, muscle weakness, numbness, stiffness, tingling, restless legs and leg pain at night Skin Skin: Positive for dry skin and itchy eyes; No yellowing of the eye Neuro Neurology: Positive for weakness, numbness, tingling and restless legs Psych Psychiatric: Positive for anxiety and Positive for depression Endo Endocrine: Positive for fatigue; No weight change Aller/Imm Allergy/Immunologic: Positive for itchy eyes Lencho/Lymp Hematologic/Lymphatic: Positive for easy bleeding and easy bruising Exam Const General: cooperative and comfortable Nutritional Appearance: average body habitus and well nourished [facility] Head: normal to inspection Ears: hearing grossly normal bilaterally Nose: external nose normal Face and sinus: normal facial exam Eyes General: appearance normal, both eyes and all related structures Neck Neck: normal visual inspection Chest Chest palpation inspection: normal inspection of the chest and normal palpation of entire chest wall Resp Effort Inspection: normal respiratory effort Auscultation: Bilateral: Clear to Auscultation Cardio Palpation: normal PMI Rate: regular rate Rhythm: regular rhythm GI Inspection: normal to inspection Auscultation: normal bowel sounds Percussion: normal to percussion Palpation: no hepatosplenomegaly Skin General: no rashes or lesions noted Neuro General: patient alert Extrem General: normal to inspection Psych Affect: normal affect Assessment and Plan Assessment and Plan (1) Irritable bowel syndrome: (2) Chronic constipa (more content not included)... Normal [facility] Hematocrit Auto (Bld) [Volum e fraction]Ordered By: Fabiola Griggs on 11-11-2024 Hematocrit (Bld) [Volume fraction] 41.0 % 37-47 [facility] Hemoglobin measurementOrdere d By: Fabiola Griggs on 11-11-2024 Hemoglobin (Bld) [Mass/Vol] 13.6 g/dL 12.0-15.0 [facility] IgA [Mass/Vol]Ordered By: Marie Griggs on 11-11-2024 Immunoglobulin A 311 mg/dL 87-352 [facility] Comment on above: Performed at: [address] [id number] Director: Praveen Cary PhD, Phone: [phone] Immature granulocytes/100 WB C Auto (Bld)Ordered By: Fabiola Griggs on 11-11-2024 Immature granulocytes/100 WBC (Bld) 0.200 % 0.0-0.9 [facility] Comment on above: IG% - Immature Granu locytes (promyelocytes, myelocytes and metamyelocytes) > 1% indicates that a LEFT SHIFT is Present. Laboratory - Chemistry and C hemistry - challengeOrdered By: Fabiola Griggs on 11-11-2024 AST [Catalytic activity/Vol] 19 U/L <32 [facility] Lymphocytes Auto (Unsp spec) [#/Vol]Ordered By: Fabiola Griggs on 11-11-2024 Lymphocytes (Bld) [#/Vol] 1.88 10*3/uL 0.83-4.51 [facility] Lymphocytes/100 WBC Auto (Un sp spec)Ordered By: Fabiola Griggs on 11-11-2024 Lymphocytes/100 WBC (Bld) 39.0 % 19-41 [facility] MCV (mean corpuscular volume ) determinationOrdered By: Fabiola Griggs on 11-11-2024 MCV (RBC) [Entitic vol] 93.2 fL 81-99 [facility] Mean corpuscular hemoglobin (MCH) determinationOrdered By: Fabiola Griggs on 11-11-2024 MCH (RBC) [Entitic mass] 30.9 pg 27.0-32.0 [facility] Mean corpuscular hemoglobin concentration (MCHC) determinationOrdered By: Fabiola Griggs on 11-11-2024 MCHC (RBC) [Mass/Vol] 33.2 g/dL 32-36 [facility] Mean platelet volume determi nationOrdered By: Fabiola Griggs on 11-11-2024 Platelet mean volume (Bld) [Entitic vol] 9.0 fL 6.2-12.0 [facility] Monocyte percentageOrdered B y: Fabiola Griggs on 11-11-2024 Monocytes/100 WBC (Bld) 8.7 % 0-10 [facility] Neutrophil percentageOrdered By: Fabiola Griggs on 11-11-2024 Neutrophils/100 WBC (Bld) 50.1 % 47-70 [facility] Nucleated red blood cell per centageOrdered By: Fabiola Griggs on 11-11-2024 Nucleated RBC/100 WBC (Bld) [Ratio] 0 % 0-5 [facility] Peanut IgE Qn (S)Ordered By: Fabiola Griggs on 11-11-2024 Peanut Allergen (RAST) <0.10 kU/L Class 0 [facility] Platelet countOrdered By: Marie Griggs on 11-11-2024 Platelets (Bld) [#/Vol] 309 10*3/uL 150-450 [facility] Pork IgE Qn (S)Ordered By: Nicky Griggs on 11-11-2024 Pork Allergen (RAST) <0.10 kU/L Class 0 [facility] Potassium (Unsp spec) [Mass/ Vol]Ordered By: Fabiola Griggs on 11-11-2024 Potassium [Moles/Vol] 4.2 mmol/L 3.3-5.1 [facility] RBC Auto (Bld) [#/Vol]Ordere d By: Fabiola Griggs on 11-11-2024 RBC (Bld) [#/Vol] 4.40 10*6/uL 4.2-5.4 [facility] [place] IgE Qn (S)Ordered By: Fabiola Griggs on 11-11-2024 [place] Allergen IgE Antibody <0.10 kU/L Class 0 [facility] Serum creatinine measurement (mass/volume)Ordered By: Fabiola Griggs on 11-11-2024 Creatinine [Mass/Vol] 0.64 mg/dL Low 0.70-1.20 [facility] Serum globulin measurementOr dered By: Fabiola Griggs on 11-11-2024 Globulin (S) [Mass/Vol] 3.0 g/dL 2.2-4.2 [facility] Serum glucose measurement (m ass/volume)Ordered By: Fabiola Griggs on 11-11-2024 Glucose [Mass/Vol] 95 mg/dL 70-99 [facility] Serum mussel specific IgE an tibody assayOrdered By: Fabiola Griggs on 11-11-2024 Mussel Allergen IgE Antibody <0.10 kU/L Class 0 [facility] Serum or plasma alanine boone otransferase (ALT) measurementOrdered By: Fabiola Griggs on 11-11-2024 ALT [Catalytic activity/Vol] 15 U/L <35 [facility] Serum or plasma albumin kyrie urement (mass/volume)Ordered By: Fabiola Griggs on 11-11-2024 Albumin [Mass/Vol] 4.5 g/dL 3.5-5.0 [facility] Serum or plasma albumin/glob ulin mass ratioOrdered By: Fabiola Griggs 11-11-2024 Albumin/Globulin [Mass ratio] 1.5 {ratio} 0.9-2.4 [facility] Serum or plasma alkaline carolyn sphatase measurementOrdered By: Fabiola Griggs on 11-11-2024 ALP [Catalytic activity/Vol] 87 U/L 35-104 [facility] Serum or plasma calcium kyrie urement (mass/volume)Ordered By: Fabiola Griggs 11-11-2024 Calcium [Mass/Vol] 9.4 mg/dL 7.6-11.0 [facility] Serum or plasma urea nitroge n measurement (mass/volume)Ordered By: Fbaiola Griggs on 11-11-2024 Urea nitrogen [Mass/Vol] 8 mg/dL 4-19 [facility] Serum shrimp specific IgE an tibody assayOrdered By: Fabiola Griggs on 11-11-2024 Shrimp Allergen <0.10 kU/L Class 0 [facility] Service comment (Unsp spec) [Interp]Ordered By: Fabiola Griggs on 11-11-2024 RAST Comment Comment . [facility] Comment on above: Levels of Specific I gE Class Description of Class ----- < 0.10 0 Negative 0.10 - 0.31 0/I Equivocal/Low 0.32 - 0.55 I Low 0.56 - 1.40 II Moderate 1.41 - 3.90 III High 3.91 - 19.00 IV Very High 19.01 - 100.00 V Very High >100.00 Very High Sodium levelOrdered By: Domitila Griggs on 11-11-2024 Sodium [Moles/Vol] 141 mmol/L 133-145 [facility] Soybean IgE Qn (S)Ordered By : Fabiola Griggs on 11-11-2024 Soybean Allergen (RAST) <0.10 kU/L Class 0 [facility] TSH DL <= 0.005 mIU/L QnOrde red By: Fabiola Griggs on 11-11-2024 Thyroid Stimulating Hormone (TSH) 0.675 uIU/mL 0.300-4.200 [facility] Thyroid Stim Hormone (TSH)on 11-11-2024 TSH 0.675 uIU/mL Normal 0.300-4.200 [facility] Comment on above: Performed By: #### L 500.4050, L501.9520, L100.0100, L5500.0550, L3410.2400, L101.9900, L501.6710 ####[facility] [id number] [place], [place], [id number] Total proteinOrdered By: Isamar Griggs on 11-11-2024 Protein [Mass/Vol] 7.6 g/dL 5.9-8.4 [facility] Tuna IgE Qn (S)Ordered By: Nicky Griggs on 11-11-2024 Tuna Allergen (RAST) <0.10 kU/L Class 0 [facility] Wheat IgE Qn (S)Ordered By: Fabiola Griggs on 11-11-2024 Wheat Allergen (RAST) <0.10 kU/L Class 0 [facility] White blood cell (WBC) count Ordered By: Fabiola Griggs on 11-11-2024 WBC (Bld) [#/Vol] 4.8 10*3/uL 4.4-11.0 [facility] Whole Egg IgE Qn (S)Ordered By: Fabiola Griggs on 11-11-2024 Egg Whole Allergen <0.10 kU/L Class 0 [facility] Comment on above: Performed at: [address] [id number] Director: Kenny Dangelo MD, Phone: [phone] tTG IgA Qn (S)Ordered By: Marie Griggs on 11-11-2024 Tissue Transglutaminase IgA Ab <2 U/mL 0-3 [facility] Comment on above: Negative 0 - 3 Weak Positive 4 - 10 Positive >10 Tissue Transglutaminase (tTG) has been identified as the endomysial antigen. Studies have demonstr- ated that endomysial IgA antibodies have over 99% specificity for gluten sensitive enteropathy. Urgent Care Visit Reporton 0 04-20-2024 Urgent Care Visit Report [facility] [address], [address] [place] [address] OFFICE VISIT Date of Service: 04/20/24 MR#: [id number] Acct: [id number] Name: LACHELLE MONROE Rep #: [id number] : 2000 Provider: PARAS Roman Age/Sex: 23/F Location: [facility] [place] Status: Signed Intake Vital Signs 03/01/24 18:13 04/20/24 12:25 Height 5 ft 6 in 5 ft 6 in Weight: 157 lb 4 oz BMI 25.3 BP 112/66 Blood Pressure Location Rt brachial Position Sitting Respiration 16 Pulse 99 Pulse Source NIBP Temp 99.1 F Temp Source Temporal Pulse Oximetry (%) 98 Oxygen Delivery Method room air Intake Visit Reasons: CASTILLO/ABD PAIN Chief Complaint: CASTILLO brain fog 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 Is patient in pain?: No Allergies No Known Allergies Allergy (Verified 04/20/24 12:33) Medications ???Medication ???Instructions ???Recorded ???Confirmed ???Type polyethylene glycol 3350 17 17 g PO DAILY PRN constipation 03/01/24 Rx gram/dose oral powder (Miralax) #119 grams benzonatate 100 mg capsule 100 mg PO TID PRN cough #20 caps 04/20/24 04/20/24 Rx methylprednisolone 4 mg tablets in See Rx Instructions PO PER PKG DIR 04/20/24 04/20/24 Rx a dose pack (Medrol (Cristofer)) #21 tabs Is last menstrual period known: No Post menopausal: No Patient : No Have you fallen in the past year?: No Nurse's Note: CASTILLO, brain fog x 24 hours. had abd pain, nausea, congestion but these s/s have resolved. PFSH Medical History Anxiety Depression Surgical History (Updated 04/20/24 @ 12:34 by Carmelina Person) No significant past surgical history Family History Other Diabetes Hypertension Social History Smoking Status: Never smoker HPI HPI Chief Complaint: CASTILLO brain fog Details: LACHELLE MONROE, is a 23 F who presents to the office today for initial evaluation in the [facility] for approximately 24-hour history of persistent foggy feeling and mild CASTILLO. Patient notes no complaints of chest pain or shortness of breath or dyspnea on exertion or abdominal pains or fever/ chills or lightheadedness/dizziness/n ausea/vomiting. Several close contacts recently dx???d w/ similar URI complaints. No qaun-fhy-tqeyigi taken to assist. No other associated symptoms and no other alleviating/aggravating factors. ROS Const Constitutional: No other (As above) Exam Const General: cooperative, healthy appearing and no acute distress Orientation: alert, awake and oriented x3 HENMT Head: normal to inspection Ears: hearing grossly normal bilaterally, external ears normal, TM's normal bilaterally and EAC's normal Nose: external nose normal, nares normal, septum normal and clear nasal discharge Face and sinus: normal facial exam, sinuses nontender and face symmetric Mouth: oral mucosae normal, lip normal, tongue normal and oropharynx normal Throat: posterior oropharynx normal, tonsils normal, uvula midline and no postnasal drainage Eyes General: appearance normal, both eyes and all related structures Neck Neck: normal visual inspection, full ROM, no lymphadenopathy, no meningeal signs and supple Neck mass: No Thyroid: thyroid normal Lymphatic: no lymphadenopathy noted Chest Chest palpation inspection: normal inspection of the chest Resp Effort Inspection: normal respiratory effort, able to speak in complete sentences and no unsolicited cough during today's exam Auscultation: Bilateral: Clear to Auscultation Cardio Palpation: normal PMI Rate: tachycardic Rhythm: regular rhythm Heart Sounds: S1 normal, S2 normal, no gallops, no murmurs and no rubs Pulses: radial pulses present Skin General: no rashes or lesions noted Neuro General: patient alert, patient awake and patient oriented x3 Cognition: normal cognition Speech: speech normal Psych Appearance: grossly normal Mental Status: mental status grossly normal Mood: congruent mood Affect: normal affect Speech and Movement: speech and movement normal Attitude: cooperative Diagnoses Contact with or exposure to other viral diseases Z20.828 URI (upper respiratory infection) J06.9 Assessment and Plan Assessment and Plan (1) Contact with or exposure to other viral diseases: Status: Acute (2) URI (upper respiratory infection): Status: Acute Plan: See POC results. Medrol and Benzonatate as prescribed today. Supportive measures as instructed today. Work excuse provided upon patient request. Follow-up with PCP in 5 to 7 days should symptoms not improve, ED sooner should symptoms worsen or any other concerns develop. Pt states acknowledging understanding all the above Coding Level of Ca (more content not included)... Normal [facility] Abdomen/Pelvis WITH Contrast on 03-01-2024 Abdomen/Pelvis WITH Contrast [facility] Imaging Services [address] [place] [address] [id number] Abdomen/Pelvis WITH Contrast MR#: [id number] Acct: [id number] Name: LACHELLE MONROE Rep #: [id number] : 2000 F 23 From: Piero dumont DO PCP: Care Physician,No Primary Status: REG ER Study: Abdomen/Pelvis WITH Contrast Date of Exam: Exam# [id number] Ordering Dr: Madison Angulo MD 0:[id number] EXAM: CT ABDOMEN AND PELVIS WITH INTRAVENOUS CONTRAST CLINICAL INDICATION: abd pain -- IV PO Contrast TECHNIQUE: Helically acquired images were obtained of the abdomen and pelvis with intravenous contrast. This CT exam was performed using one or more of the following dose reduction techniques: automated exposure control, adjustment of the mA and/or kV according to patient size, and/or use of iterative reconstruction technique. CONTRAST: Oral and amp; IV Gastrografin and amp; 100mL Isovue-370 COMPARISON: No relevant prior studies available. FINDINGS: LOWER THORAX: No significant abnormality. Lung bases are clear. No cardiomegaly. No significant pericardial effusion. ABDOMEN: LIVER: No significant abnormality. Homogeneous. No focal mass. GALLBLADDER AND BILE DUCTS: No significant abnormality. No calcified gallstones. No gallbladder distention or wall edema. No intra- or extrahepatic biliary ductal dilation. PANCREAS: No significant abnormality. No focal cystic or solid mass. SPLEEN: No significant abnormality. Normal size without focal cystic or solid mass. ADRENALS: No significant abnormality. No nodules. KIDNEYS AND URETERS: No significant abnormality. Normal renal size and position. No hydronephrosis. STOMACH AND BOWEL: Large volume rectal stool retention without rectal wall thickening. No stomach or bowel distention. PELVIS: APPENDIX: There is a normal-appearing appendix in the right lower quadrant. BLADDER: No significant abnormality. REPRODUCTIVE: Right adnexal simple appearing cyst measuring approximately 3.1 cm. ACR White Paper guidelines (Guadalupe, et. al. JACR 2020;17(2):248-254) suggest no follow-up is necessary. ABDOMEN and PELVIS: INTRAPERITONEAL SPACE: No significant abnormality. No ascites or other fluid collection. No free air. BONES/JOINTS: No significant abnormality. No suspicious lytic or blastic abnormality. SOFT TISSUES: No significant abnormality. No discrete abdominal or pelvic wall hernia. VASCULATURE: No significant abnormality. Abdominal aorta is non-dilated. LYMPH NODES: No significant abnormality. No enlarged lymph nodes. CT/Abdomen/Pelvis WITH Contrast IMPRESSION: Large volume rectal stool retention without rectal wall thickening. No additional acute findings. Electronically Signed: Piero Galarza DO at 21:13 EDT , CC: Dr. Madison Angulo MD; No Primary Care Physician Dental Scheduler: Signed Normal [facility] Basic Metabolic Profile (BMP )on 03-01-2024 BUN/CRE 7.8 RATIO Low 10-20 [facility] Comment on above: Performed By: #### L 700.6800, L500.3400, L501.2450, L500.2500, L100.0100 ####[facility] [address] [place], [address] CA,Total 9.2 mg/dL Normal 8.5-10.1 [facility] Comment on above: Performed By: #### L 700.6800, L500.3400, L501.2450, L500.2500, L100.0100 ####[facility] [address] [place], [address] Chloride [Moles/Vol] 105 mmol/L Normal 98-107 [facility] Comment on above: Performed By: #### L 700.6800, L500.3400, L501.2450, L500.2500, L100.0100 ####[facility] [address] [place], [address] CO2 [Moles/Vol] 29.0 mmol/L Normal 21.0-32.0 [facility] Comment on above: Performed By: #### L 700.6800, L500.3400, L501.2450, L500.2500, L100.0100 ####[facility] [address] [place], [address] Creatinine [Mass/Vol] 0.64 mg/dL Normal 0.55-1.02 [facility] Comment on above: Result Comment: The validity of the calculated GFR GFRAA in patients over 70 years has not been determined. Clinical correlation is essential. Performed By: #### L 700.6800, L500.3400, L501.2450, L500.2500, L100.0100 ####[facility] [address] [place], [address] ECRCL 141.11 ml/min Normal [facility] Comment on above: Performed By: #### L 700.6800, L500.3400, L501.2450, L500.2500, L100.0100 ####[facility] [address] [place], [address] EST GFR - AA 151 mL/min Normal >60 [facility] Comment on above: Result Comment: Afri can Belgian GFR Calc Performed By: #### L 700.6800, L500.3400, L501.2450, L500.2500, L100.0100 ####[facility] [address] [place], [address] GAP 4 Low 5-15 [facility] Comment on above: Performed By: #### L 700.6800, L500.3400, L501.2450, L500.2500, L100.0100 ####[facility] [address] [place], [address] GFR/1.73 sq M.predicted among non-blacks MDRD (S/P/Bld) [Vol rate/Area] 124 mL/min/{1.73_m2} Normal >60 [facility] Comment on above: Result Comment: Non- GFR Calc Performed By: #### L 700.6800, L500.3400, L501.2450, L500.2500, L100.0100 ####[facility] [address] [place], [address] Glucose [Mass/Vol] 97 mg/dL Normal 74-106 [facility] Comment on above: Performed By: #### L 700.6800, L500.3400, L501.2450, L500.2500, L100.0100 ####[facility] [address] [place], [address] Potassium [Moles/Vol] 3.6 mmol/L Normal 3.5-5.1 [facility] Comment on above: Performed By: #### L 700.6800, L500.3400, L501.2450, L500.2500, L100.0100 ####[facility] [address] [place], [address] Sodium [Moles/Vol] 138 mmol/L Normal 136-145 [facility] Comment on above: Performed By: #### L 700.6800, L500.3400, L501.2450, L500.2500, L100.0100 ####[facility] [address] [place], [address] Urea nitrogen [Mass/Vol] 5 mg/dL Low 7-18 [facility] Comment on above: Performed By: #### L 700.6800, L500.3400, L501.2450, L500.2500, L100.0100 ####[facility] [address] [place], [address] CBC W/Diff, Automatedon 07-2 -2023 Absolute Lymph 2.26 X10 3/uL Normal 0.83-4.51 [facility] Comment on above: Performed By: #### L 700.6800, L500.3400, L501.2450, L500.2500, L100.0100 ####[facility] [address] [place], [address] Absolute Neut 4.7 X10 3/uL Normal 2.0-7.7 [facility] Comment on above: Performed By: #### L 700.6800, L500.3400, L501.2450, L500.2500, L100.0100 ####[facility] [address] [place], [address] Basophils/100 WBC (Bld) 0.7 % Normal 0-1 [facility] Comment on above: Performed By: #### L 700.6800, L500.3400, L501.2450, L500.2500, L100.0100 ####[facility] [address] [place], [address] Eosinophils/100 WBC (Bld) 1.1 % Normal 0-5 [facility] Comment on above: Performed By: #### L 700.6800, L500.3400, L501.2450, L500.2500, L100.0100 ####[facility] [address] [place], [address] Erythrocyte distribution width (RBC) [Ratio] 11.8 % Normal 11.6-14.6 [facility] Comment on above: Performed By: #### L 700.6800, L500.3400, L501.2450, L500.2500, L100.0100 ####[facility] [address] [place], [address] Hematocrit (Bld) [Volume fraction] 44.9 % Normal 37-47 [facility] Comment on above: Performed By: #### L 700.6800, L500.3400, L501.2450, L500.2500, L100.0100 ####[facility] [address] [place], [address] Hemoglobin (Bld) [Mass/Vol] 14.9 g/dL Normal 12.0-15.0 [facility] Comment on above: Performed By: #### L 700.6800, L500.3400, L501.2450, L500.2500, L100.0100 ####[facility] [address] [place], [address] IG% 0.400 Normal 0.0-0.9 [facility] Comment on above: Result Comment: IG% - Immature Granulocytes (promyelocytes, myelocytes and metamyelocytes) > 1% indicates that a LEFT SHIFT is Present. Performed By: #### L 700.6800, L500.3400, L501.2450, L500.2500, L100.0100 ####[facility] [address] [place], [address] Lymphocytes/100 WBC (Bld) 29.7 % Normal 19-41 [facility] Comment on above: Performed By: #### L 700.6800, L500.3400, L501.2450, L500.2500, L100.0100 ####[facility] [address] [place], [address] MCH (RBC) [Entitic mass] 30.3 pg Normal 27.0-32.0 [facility] Comment on above: Performed By: #### L 700.6800, L500.3400, L501.2450, L500.2500, L100.0100 ####[facility] [address] [place], [address] MCHC (RBC) [Mass/Vol] 33.2 g/dL Normal 32-36 [facility] Comment on above: Performed By: #### L 700.6800, L500.3400, L501.2450, L500.2500, L100.0100 ####[facility] [address] [place], [address] MCV (RBC) [Entitic vol] 91.4 fL Normal 81-99 [facility] Comment on above: Performed By: #### L 700.6800, L500.3400, L501.2450, L500.2500, L100.0100 ####[facility] [address] [place], [address] Monocytes/100 WBC (Bld) 7.0 % Normal 0-10 [facility] Comment on above: Performed By: #### L 700.6800, L500.3400, L501.2450, L500.2500, L100.0100 ####[facility] [address] [place], [address] Neutrophils/100 WBC (Bld) 61.1 % Normal 47-70 [facility] Comment on above: Performed By: #### L 700.6800, L500.3400, L501.2450, L500.2500, L100.0100 ####[facility] [address] [place], [address] Nucleated RBC (Bld) [#/Vol] 0 10*3/uL Normal 0-5 [facility] Comment on above: Performed By: #### L 700.6800, L500.3400, L501.2450, L500.2500, L100.0100 ####[facility] [address] [place], [address] Platelet mean volume (Bld) [Entitic vol] 8.8 fL Normal 6.2-12.0 [facility] Comment on above: Performed By: #### L 700.6800, L500.3400, L501.2450, L500.2500, L100.0100 ####[facility] [address] [place], [address] Platelets (Bld) [#/Vol] 335 10*3/uL Normal 150-450 [facility] Comment on above: Performed By: #### L 700.6800, L500.3400, L501.2450, L500.2500, L100.0100 ####[facility] [address] [place], [address] RBC (Bld) [#/Vol] 4.91 10*6/uL Normal 4.2-5.4 [facility] Comment on above: Performed By: #### L 700.6800, L500.3400, L501.2450, L500.2500, L100.0100 ####[facility] [address] [place], [address] RDW SD 39.3 fl Normal 35.1-43.9 [facility] Comment on above: Performed By: #### L 700.6800, L500.3400, L501.2450, L500.2500, L100.0100 ####[facility] [address] [place], [address] WBC (Bld) [#/Vol] 7.6 10*3/uL Normal 4.4-11.0 [facility] Comment on above: Performed By: #### L 700.6800, L500.3400, L501.2450, L500.2500, L100.0100 ####[facility] [address] [place], [address] Emergency Department Summary on 03-01-2024 Emergency Department Summary [facility] Medical Records Department [address] [facility] [place] [address] Emergency Department Summary 03/01/24 MR#: [id number] Acct: [id number] Name: LACHELLE MONROE Rep #: [id number] : 2000 23 From: Madison Angulo MD PCP: Care Physician,No Primary Status:DEP ER Location: ED HPI History of Present Illness Chief Complaint: Abd Pain Informant: patient Narrative Narrative: Patient presents secondary to abdominal pain. She states her whole life she has had problems with abdominal pain. It is been worsening over the past couple of months. Tonight she had pain that presented as a wave across her abdomen and up into her chest that took her breath away. This is what prompted her to come to the emergency room tonight. She has never been evaluated for her abdominal pain. She denies fever or chills. She denies urinary symptoms. [facility] Medical History Anxiety Depression Home Medications ???Medication ???Instructions ???Recorded ???Last Taken ???Type NK 03/01/24 Unknown History polyethylene glycol 3350 17 17 g PO DAILY PRN constipation 03/01/24 Unknown Rx gram/dose oral powder (Miralax) #119 grams Allergy/AdvReac Type Severity Reaction Status Date / Time No Known Allergies Allergy Verified 03/01/24 18:16 Family History Other Diabetes Hypertension Surgical History no surgical history Social History Smoking Status: Never smoker ROS ROS ED Constitutional Constitutional ED: Denies chills or fever(s) Eyes Eyes: Denies discharge from eye(s) ENT ENT ED: Denies discharge from eye(s), rhinorrhea or sore throat Cardiovascular Cardiovascular: Denies chest pain Respiratory/Chest Respiratory/Chest: Denies cough or dyspnea Gastrointestinal Gastrointestinal: Reports abdominal pain; Denies diarrhea, nausea or vomiting Genitourinary Genitourinary ED: Denies dysuria or hematuria Musculoskeletal Musculoskeletal: Denies back pain or extremity pain Integumentary Denies Abrasions or rash Neurologic Neurologic: Denies headache(s) or weakness Psychiatric Psychiatric: Reports anxiety; Denies depression Allergic/Immunologic Allergic/Immunologic ED: Denies lip swelling or urticaria EXAM Physical Exam Const Vital Signs: 03/01/24 18:13 03/01/24 20:13 03/01/24 22:12 Temperature 98 F 98.3 F Temperature Source Temporal Oral Pulse Rate 112 H 105 H 91 Respiratory Rate 16 16 16 Blood Pressure 143/92 H 128/74 H Blood Pressure Mean 109 92 Pulse Ox 95 100 99 Oxygen Delivery Method Room Air Room Air Room Air 03/01/24 22:12 Temperature 98.3 F Temperature Source Pulse Rate 91 Respiratory Rate 16 Blood Pressure 120/61 Blood Pressure Mean 80 Pulse Ox 99 Oxygen Delivery Method Positive well nourished and well developed General Appearance ED: well developed HEENT Reports moist mucous membranes Eyes EOMs intact bilaterally Chest Wall inspection of chest normal and palpation of chest normal Resp normal respiratory effort and clear to auscultation bilaterally Cardio regular rate and regular rhythm GI GI Narrative: Abdomen soft with mild diffuse tenderness. No guarding or rebound. No palpable masses. Hypoactive bowel sounds are noted. Back/Spine no CVA tenderness Extremity normal to inspection Neuro oriented x3 and no sensory deficits noted Motor Exam: strength 5/5 throughout Psych Mood Affect: tearful Skin no rashes or lesions noted MDM MDM MDM Narrative Medical decision making narrative: IV line established. Patient declines anything for pain. Labwork obtained to evaluate for leukocytosis, anemia, and electrolyte derangement. Urinalysis obtained to evaluate for infection/hematuria. CT scan of the abdomen and pelvis with p.o. and IV contrast will be obtained to evaluate for any evidence of ulcerative colitis, Crohn's, IBS, appendicitis. History Record Review Discussion w/independent historian: Patient and Family Lab Data Attestation: I reviewed the patient's lab results. Labs: Laboratory Results - last 24 hr 03/01/24 03/01/24 19:00 19:08 WBC 7.6 RBC 4.91 Hgb 14.9 Hct 44.9 MCV 91.4 MCH 30.3 MCHC 33.2 RDW Std Deviation 39.3 RDW Coeff of Micaela 11.8 Plt Count 335 MPV 8.8 Immature Gran % (Auto) 0.400 Neut % (Auto) 61.1 Lymph % (Auto) 29.7 [place] % (Auto) 7.0 Eos % (Auto) 1.1 Baso % (Auto) 0.7 Absolute Neuts (auto) 4.7 Absolute Lymphs (auto) 2.26 Nucleated RBC % 0 Sodium 138 Potassium 3.6 Chloride 105 Carbon Dioxide 29.0 Anion Gap 4 L BUN 5 L Creatinine (more content not included)... Normal [facility] Lipaseon 03-01-2024 Lipase [Catalytic activity/Vol] 22 U/L Normal 13-75 [facility] Comment on above: Result Comment: Gwendolyn garcia note: LIPASE revised reference range effective 22. New Lipase methodology. Expected to produce lower values than the previous assay method. NEW Reference Range: 13 - 75 U/L Performed By: #### L 700.6800, L500.3400, L501.2450, L500.2500, L100.0100 ####[facility] [address] [place], [address] Liver Profileon 03-01-2024 Albumin [Mass/Vol] 3.9 g/dL Normal 3.2-5.0 [facility] Comment on above: Performed By: #### L 700.6800, L500.3400, L501.2450, L500.2500, L100.0100 ####[facility] [address] [place], [address] ALK P 88 U/L Normal 45-117 [facility] Comment on above: Performed By: #### L 700.6800, L500.3400, L501.2450, L500.2500, L100.0100 ####[facility] [address] [place], [address] ALT [Catalytic activity/Vol] 26 U/L Normal 13-56 [facility] Comment on above: Performed By: #### L 700.6800, L500.3400, L501.2450, L500.2500, L100.0100 ####[facility] [address] [place], [address] AST [Catalytic activity/Vol] 16 U/L Normal 15-37 [facility] Comment on above: Performed By: #### L 700.6800, L500.3400, L501.2450, L500.2500, L100.0100 ####[facility] [address] [place], [address] Bilirubin [Mass/Vol] 1.20 mg/dL High 0.20-1.00 [facility] Comment on above: Result Comment: For patients on eltrombopag therapy, use of [place] TBIL is not recommended. Performed By: #### L 700.6800, L500.3400, L501.2450, L500.2500, L100.0100 ####[facility] [address] [place], [address] Bilirubin.direct [Mass/Vol] 0.30 mg/dL Normal 0.00-0.30 [facility] Comment on above: Performed By: #### L 700.6800, L500.3400, L501.2450, L500.2500, L100.0100 ####[facility] [address] [place], [address] Globulin (S) [Mass/Vol] 4.0 g/dL Normal 2.2-4.2 [facility] Comment on above: Performed By: #### L 700.6800, L500.3400, L501.2450, L500.2500, L100.0100 ####[facility] [address] [place], [address] T PROT 7.9 g/dL Normal 6.4-8.2 [facility] Comment on above: Performed By: #### L 700.6800, L500.3400, L501.2450, L500.2500, L100.0100 ####[facility] [address] [place], [address] ,Serum,hCG Quali.on 03-01-2024 HCG, SERUM QUAL Negative Normal [facility] Comment on above: Performed By: #### L 700.6800, L500.3400, L501.2450, L500.2500, L100.0100 ####[facility] [address] [place], [address] Urinalysis, Completeon 03-01 BACTERIA 1+ /hpf Normal None Seen [facility] Comment on above: Order Comment: CLEAN CATCH Performed By: #### L 400.0001 #### [facility] [address] [place], [address] EPI,SQUAMOUS 0-5 SEEN Normal 5-10 [facility] Comment on above: Order Comment: CLEAN CATCH Performed By: #### L 400.0001 #### [facility] [address] [place], [address] Mucus Ql (Urine sed) 0 SEEN Normal [facility] Comment on above: Order Comment: CLEAN CATCH Performed By: #### L 400.0001 #### [facility] [address] [place], [address] RBC 0 SEEN Normal 0-5 [facility] Comment on above: Order Comment: CLEAN CATCH Performed By: #### L 400.0001 #### [facility] [address] [place], [address] WBC 0 SEEN Normal 0-5 [facility] Comment on above: Order Comment: CLEAN CATCH Performed By: #### L 400.0001 #### [facility] [address] [place], [address] Coronavirus 2019on 0 COVID 19 Result SENIOR INTERACTION DESIGNER Abnormal Negative for COVID19 (SARS CoV2) by PCR. [facility] Comment on above: Result Comment: Posi tive for This test was developed and its performance characteristics determined by [facility]'s [facility] [place]. This test has been authorized by FDA under an Emergency Use Authorization (EUA). This test has been validated in accordance with the FDA's Guidance Document Policy for Diagnostics Testing in Laboratories Certified to Perform High Complexity Testing under CLIA prior to Emergency use Authorization for Coronavirus Disease 2019 during the Public Health Emergency issued on October 08, 2019. COVID19 (SARS This test was developed and its performance characteristics determined by [facility] [place]. This test has been authorized by FDA under an Emergency Use Authorization (EUA). This test has been validated in accordance with the FDA's Guidance Document Policy for Diagnostics Testing in Laboratories Certified to Perform High Complexity Testing under CLIA prior to Emergency use Authorization for Coronavirus Disease 2019 during the Public Health Emergency issued on October 08, 2019. CoV2) by This test was developed and its performance characteristics determined by [facility] [place]. This test has been authorized by FDA under an Emergency Use Authorization (EUA). This test has been validated in accordance with the FDA's Guidance Document Policy for Diagnostics Testing in Laboratories Certified to Perform High Complexity Testing under CLIA prior to Emergency use Authorization for Coronavirus Disease 2019 during the Public Health Emergency issued on October 08, 2019. PCR.(*) This test was developed and its performance characteristics determined by [facility] [place]. This test has been authorized by FDA under an Emergency Use Authorization (EUA). This test has been validated in accordance with the FDA's Guidance Document Policy for Diagnostics Testing in Laboratories Certified to Perform High Complexity Testing under CLIA prior to Emergency use Authorization for Coronavirus Disease 2019 during the Public Health Emergency issued on October 08, 2019. Coronavirus 2019on 0 COVID 19 Source SENIOR INTERACTION DESIGNER Normal [facility] Comment on above: Result Comment: Naso pharyngeal Corrected on 07/24 AT 1052: Previously reported as U Swab Corrected on 07/24 AT 1052: Previously reported as U Progress Noteon 01-11-2018 Photographic Process Attendant Authentication Interface Message Text Patient ID: Lachelle Monroe is a 17 y.o. female. Her chief complaint(s)include: 17 YEAR WELL CHILD (need physical for employmentof minor)Assessment1. Encounter for routine child health examination without abnormal findings2. Exercise counseling3. Encounter for dietary counseling and surveillancePlanLachelle was seen today for 17 year well child.Diagnoses and all orders for this visit:Encounter for routine child health examination without abnormal findings- Behavioral/Emotional Assessment w Score - PHQ-9Exercise counselingEncounter for dietary counseling and surveillanceReturn in about 1 year (around 01/11/2019) for well check.Mary Lou is accompanied by her mother.17 YEAR WELL CHILDHome:Lachelle eats meals with family, has an adult to turn to for help and ispermitted and able to make independent decisions.Education:She Is in 10th grade and is doing well.Eating:Lachelle eats regular meals including fruits and vegetables, eats breakfast andhas a calcium source.Activities & Sports:She has a job.Safety:She uses seat belt.Suicidality:She has ways to cope with stress.MenstruationMenstrua tion: regular periodsOutputUrine and Stool Pattern:Urine and Stool Pattern: Normal stool pattern, normal urine pattern.Stool Consistency: softSleepSleeping Difficulty: no difficulty sleepingHours of sleep at a time: 10Teen Anticipatory GuidanceThe following anticipatory guidance was reviewed during the visit:Safety: home safety.Social: avoid or limit screen time.Health: age appropriate dental care.ScreeningsLife events information was reviewed-referrals givenHearing Vision Concerns:The caregiver has no concerns about the patient's hearing.The caregiver has no concerns about the patient's vision.Primary Care Review of SystemsObjectiveVitals: 01/11/18 1608Weight: 58.4 kgHeight: 166.6 cmBody mass index is 21.04 kg/m .Physical ExamConstitutional: She appears well. She is active. No distress.HENT:Head: Atraumatic.Right Ear: Tympanic membrane and external ear normal.Left Ear: Tympanic membrane and external ear normal.Nose: Nose normal.Mouth/Throat: Mucous membranes are moist. Dentition is normal.Eyes: Conjunctivae and EOM are normal. Pupils are equal, round, and reactive tolight.Neck: Neck supple. No neck adenopathy.Cardiovascular: Normal rate, regular rhythm, S1 normal and S2 normal. Pulsesare palpable.Pulmonary/Chest: Effort normal and breath sounds normal.Abdominal: Soft. Bowel sounds are normal. She exhibits no distension and nomass. There is no tenderness.Musculoskeletal: She exhibits no deformity.Neurological: She is alert. She has normal strength. She exhibits normal muscletone.Skin: No rash noted. No cyanosis. No pallor. Skin is warm.Vitals reviewed: Height 166.6 cm, weight 58.4 kg, last menstrual [id number]/07/2018. Normal [facility] Photographic Process Attendant Authentication Interface Message Text Lachelle Monroe is a 17 y.o. female patient. Behavioral/Emotional Assessment w Score - PHQ-9 Performed by: AMPARO BARNES Authorized by: AMPARO BARNES Electronically signed by: Amparo Barnes CNP Normal [facility] Progress Noteon 11-17-2017 Photographic Process Attendant Authentication Interface Message Text Patient ID: Lachelle Monroe is a 17 y.o. female. Her chief complaint(s)include: Abdominal Pain (vomiting) and Anxiety.Assessment:1. Constipation, unspecified constipation type2. Anxiety statePlan:Lachelle was seen today for abdominal pain and anxiety.Diagnoses and all orders for this visit:Constipation, unspecified constipation type- polyethylene glycol (MIRALAX;GLYCOLAX) powder; Take 8.5 g by mouth dailyMix in 8 ounces of fluid.Anxiety stateRecommended taking 1/2 capful of miralax daily for constipation, increasingwater intake, and incorporating fiber into diet (ie beans, cereals, bread).Recommended seeing guidance counselor regularly and having patient scheduleappt. With counselor. Can also eliminate dairy from diet for 1 week to see ifabdominal pain sx improve. Follow up as needed.Provider spent 30 mins teaching/counseling patient and parent.Subjective:HPI Comments: Patient reports having stomach pain for several years. Usuallystarts at 6:30am-8:15am. Will also get stomach pain after lunch-45 mins total.Vomited today x1. Previously diagnosed with IBS. In Jun 2017 stopped takingbentyl and miralax due to improved sx. States that she did not have abdominalpain during sprink break. Some days have diarrhea. States that she may havelactose intolerance. Reports feeling gassy with milk products. Sometimes strainsat toilet. Does not know that stool looks like. Reports feeling anxious. [facility] broke up with tirso friend, and now doesn't want to singwith praise team. States that she recently started seeing guidance counselor slava. Working on deep breathing. Mom reports a counselor comes to school 2times per week.She is accompanied by her mother.Abdominal PainThe onset has been acute. (Several years). The pattern is episodic. The course is unchanging. The location of thepain is in the periumbilical area, left upper quadrant and right upper quadrant.The pain has no radiation. The contributing factors are anxiety and stress.The symptoms are aggravated by dairy. Associated symptoms include diarrhea andvomiting (x1 today).There have been no previous evaluations..AnxietyCharact erized by: AnxietyCourse: Gradually WorseningPrevious Treatments: NoneCurrent Treatments: NoneCompliance: GoodPrimary Care Review of SystemsObjective:Physical ExamConstitutional: She appears well. No distress.HENT:Head: Atraumatic.Right Ear: Tympanic membrane normal.Left Ear: Tympanic membrane normal.Nose: No nasal discharge.Mouth/Throat: Throat is not red. Mucous membranes are moist.Eyes: Conjunctivae are normal. Right eyelid exhibits no discharge. Left eyelidexhibits no discharge.Cardiovascular: Normal rate and regular rhythm.No murmur heard.Pulmonary/Chest: Breath sounds normal. There is normal air entry. No stridor. Norespiratory distress. Air movement is not decreased. She has no wheezes. She hasno rhonchi. She has no rales. Exhibits no retraction.Abdominal: Soft. Bowel sounds are normal. She exhibits no distension. There istenderness (right and left upper and periumbilical area).Neurological: She is alert. Normal [facility] Progress Noteon 04-02-2017 Photographic Process Attendant Authentication Interface Message Text Patient ID: Lachelle Monroe is a 16 y.o. female. Her chief complaint(s)include: Nausea.Assessment:1. Irritable bowel syndrome with constipationPlan:Lachelle was seen today for nausea.Diagnoses and all orders for this visit:Irritable bowel syndrome with constipation- polyethylene glycol (MIRALAX;GLYCOLAX) powder; Take 8.5 g by mouth 2 timesdaily Mix in 8 ounces of fluid.- omeprazole (PRILOSEC) 20 MG capsule; Take 1 Cap (20 mg) by mouth daily- dicyclomine (BENTYL) 10 MG capsule; Take 1 Cap (10 mg) by mouth 4 timesdaily as needed (cramping)No Follow-up on file.Subjective:The patient's reason for visit is nausea. She is accompanied by her mother.NauseaThe duration has been years and 1 week.The patient's symptoms have included abdominal pain (nausea) and diarrhea (noblood no mucous). The patient's symptoms have included no vomiting. (Seemsspecific to can worker; BM every other day). (Ranitidine, tylenol, trydifferent foods in am).Additional Parental Concerns: Family h/o lactose intolerance and crohn's(aunt); IBS maybe with MomReview of SystemsGastrointestinal: Positive for nausea.Objective:Physical ExamConstitutional: She appears well. She is active. No distress.HENT:Head: Atraumatic.Right Ear: Tympanic membrane normal.Left Ear: Tympanic membrane normal.Mouth/Throat: Mucous membranes are moist.Eyes: Conjunctivae are normal.Cardiovascular: Normal rate and regular rhythm.No murmur heard.Pulmonary/Chest: Breath sounds normal. There is normal air entry.Abdominal: She exhibits no distension and no mass. There is nohepatosplenomegaly.Neurol ogical: She is alert. Normal [facility] Vital Signs Date Time Vital Sign Value Performing Clinician Faci lity 04-11-2025 10:090400 Body height 167.64 cm Palak Nielson SENIOR INTERACTION DESIGNER-C Work Phone: [facility] 04-11-2025 10:09-0400 Body mass index (BMI) [Ratio] 25.5 kg/m2 Palak Nielson NP-C Work Phone: [facility] 04-11-2025 10:09-0400 Body temperature 98.4 [degF] Palak Nielson SENIOR INTERACTION DESIGNER-C Work Phone: [facility] 04-11-2025 10:090400 Body weight 71.72 kg Palak Nielson SENIOR INTERACTION DESIGNER-C Work Phone: [facility] 04-11-2025 10:09-0400 Diastolic blood pressure 60 mm[Hg] Palak Nielson SENIOR INTERACTION DESIGNER-C Work Phone: [facility] 04-11-2025 10:09-0400 Heart rate 78 /min Palak Nielson SENIOR INTERACTION DESIGNER-C Work Phone: [facility] 04-11-2025 10:09-0400 Respiratory rate 18 /min Palak Nielson SENIOR INTERACTION DESIGNER-C Work Phone: [facility] 04-11-2025 10:09-0400 SaO2% (BldA) [Mass fraction] 98 % Palak Nielson SENIOR INTERACTION DESIGNER-C Work Phone: [facility] 04-11-2025 10:09-0400 Systolic blood pressure 120 mm[Hg] Palak Nielson SENIOR INTERACTION DESIGNER-C Work Phone: [facility] Encounters Encounter Date Encounter Type Care Provider Facility Start: 04-11-2025 End: 04-11-2025 ambulatory Palak Nielson NP-C Work Phone: [facility] Start: 04-11-2025 End: 04-11-2025 Patient encounter procedure Galdino KIRK [facility] Work Phone: Start: 03-03-2025 End: 03-03-2025 ambulatory [facility] Start: 12-30-2024 End: 12-30-2024 Patient encounter procedure Fabiola CRAIN -[facility] Work Phone: Start: 12-30-2024 End: 12-30-2024 ambulatory Fabiola Griggs Facility:[facility] Start: 11-22-2024 End: 11-22-2024 ambulatory No Primary Care Physician [facility] Work Phone: Start: 11-22-2024 End: 11-22-2024 Patient encounter procedure Fabiola CRAIN -[facility] Work Phone: Start: 11-22-2024 End: 11-22-2024 ambulatory Fabiola Griggs Facility:[facility] Start: 11-11-2024 End: 11-11-2024 Patient encounter procedure Fabiola CRAIN -[facility] Work Phone: Start: 11-11-2024 End: 11-11-2024 ambulatory No Primary Care Physician [facility] Work Phone: Start: 11-11-2024 End: 11-11-2024 ambulatory [place] Facility:[facility] Start: 04-20-2024 End: 04-20-2024 ambulatory Quinn CRAIN Facility:[facility] Start: 03-01-2024 End: 03-01-2024 Emergency department patient visit Madison Angulo Facility:[facility] Start: 01-11-2018 End: 01-11-2018 Ambulatory SELF REFERRED [facility] Start: 11-17-2017 End: 11-17-2017 Ambulatory ECTOR ESPOSITO [facility] Start: 04-02-2017 End: 04-02-2017 Ambulatory CHRISTINA GIBSON [facility] Plan of Treatment Date Care Activity Detail Author Start: 11-11-2024 [facility] Beef IgE Ab [Units/v olume] in Serum [facility] Chocolate IgE Ab [Un its/volume] in Serum [facility] Codfish IgE Ab [Unit s/volume] in Serum [facility] [place] IgE Ab [Units/v olume] in Serum [facility] Cow milk IgE Ab [Uni ts/volume] in Serum [facility] Food RAST [facility] Peanut IgE Ab [Units /volume] in Serum [facility] Pork IgE Ab [Units/v olume] in Serum [facility] Protein measurement [facility] [place] IgE Ab [Units /volume] in Serum [facility] Shrimp IgE Ab [Units /volume] in Serum [facility] Soybean IgE Ab [Unit s/volume] in Serum [facility] Tuna IgE Ab [Units/v olume] in Serum [facility] Wheat IgE Ab [Units/ volume] in Serum [facility] Whole Egg IgE Ab [Un its/volume] in Serum [facility] XR Cervical spine 2 or 3 Views [facility] Payers Date Payer Category Payer Self-pay 2024 Unknown [id number] 2000 Unknown [id number] [id number] [id number] Private Health Insurance [id number] Unknown [id number] Unknown [id number] 2.16.8 [id number] Unknown [id number] 2.16.8 [id number] Unknown [id number] 2.16.8 [id number] Unknown [id number] 2.16.8 [id number] Unknown [id number] 2.16.8 [id number] Unknown [id number] 2.16.8 [id number] Social History Date Type Detail Facility Start: 03-01-2024 Tobacco smoking stat [facility] Never smoked tobacco (finding) [facility] Start: 11-16-2024 End: 11-28-2024 Sex Female (finding) [facility] Start: 2000 Sex Assigned At Female W [facility] Evaluation note 12-30-2024 Note Date & Type Note Facility 12-30-2024 Evaluation note Diagnosis Onset Date Resolution Chronic constipation chronic December 30, 2024 9:36am [facility] Work Phone: Evaluation note 11-11-2024 Note Date & Type Note Facility 11-11-2024 Evaluation note Diagnosis Onset Date Resolution Chronic constipation chronic Apri 2024 9:27am Irritable bowel syndrome noneactive November 11, 2024 9:27am [facility] Work Phone: Reason for referral (narrative) Note Date & Type Note Facility Reason for referral (narrative) No reason for referral information available [facility] Work Phone: Summary Purpose Family History Relationship Condition Age at Onset Recorded Date/T petra Not Specified Diabetes mellitus Unknown Hypertension Unknown Advance Directives No Advanced Directives Records FoundNo Advanced Directives Records FoundNo Advanced Directives Records FoundNo Advanced Directives Records Found Chief Complaint and Reason for Visit Chief Complaint Admit Date Irritable bowel syndrome November 11, 2024 9:27am [facility] November 11, 2024 10:2 3am Reason for Visit Admit Date Chronic constipation November 11, 2024 9:2 7am Irritable bowel syndrome November 11, 2024 9:27am Chief Complaint Admit Date follow up December 30, 2024 9:36a m R NECK/ARM PAIN April 11, 2025 10:07am Reason for Visit Admit Date Chronic constipation December 30, 2024 9:36 am Additional Source Comments INFORMATION SOURCE (unrecogn ized section and content) DATE CREATED AUTHOR 01/26/2018 [facility] DATE CREATED AUTHOR AUTHOR'S ORGANIZ ATION 07/26/2020 [facility] DATE CREATED AUTHOR AUTHOR'S ORGANIZ ATION 01/04/2025 [facility] DATE CREATED AUTHOR AUTHOR'S ORGANIZ ATION [facility] Care Teams (unrecognized sec tion and content) Team Status: Active Member Role Status Dates Palak Nielson SENIOR INTERACTION DESIGNER, SENIOR INTERACTION DESIGNER-C Primary Care Provider Active Team Status: Inactive Member Role Status Dates No Primary Care Physician Primary Care Provider Active Start: November 11, 2024 End: November 11, 2024 No Primary Care Physician Referring Provider Active Start: November 11, 2024 End: November 11, 2024 PARAS Bernal Attending Provider Active Start: November 11, 2024 End: November 11, 2024 Team Status: Inactive Member Role Status Dates Palak Nielson NP, SENIOR INTERACTION DESIGNER-C Primary Care Provider Active Start: November 11, 2024 End: November 11, 2024 PARAS Bernal Attending Provider Active Start: November 11, 2024 End: November 11, 2024 PARAS Bernal Referring Provider Active Start: November 11, 2024 End: November 11, 2024 Team Status: Inactive Member Role Status Dates Palak Nielson NP, SENIOR INTERACTION DESIGNER-C Primary Care Provider Active Start: November 22, 2024 End: November 22, 2024 PARAS Bernal Attending Provider Active Start: November 22, 2024 End: November 22, 2024 PARAS Bernal Referring Provider Active Start: November 22, 2024 End: November 22, 2024 Team Status: Active Member Role/Relationship Status Dates Palak Nielson NP, SENIOR INTERACTION DESIGNER-C Primary Care Provider Active Team Status: Inactive Member Role/Relationship Status Dates Palak Nielson NP, SENIOR INTERACTION DESIGNER-C Primary Care Provider Active Start: December 30, 2024 End: December 30, 2024 Palak Nielson NP, SENIOR INTERACTION DESIGNER-C Referring Provider Active Start: December 30, 2024 End: December 30, 2024 PARAS Bernal Attending Provider Active Start: December 30, 2024 End: December 30, 2024 Team Status: Inactive Member Role/Relationship Status Dates Palak Nielson NP, SENIOR INTERACTION DESIGNER-C Primary Care Provider Active Start: April 11, 2025 End: April 11, 2025 Palak Nielson NP, SENIOR INTERACTION DESIGNER-C Referring Provider Active Start: April 11, 2025 End: April 11, 2025 Galdino Biggs NP-C Attending Provider Active Star t: April 11, 2025 End: April 11, 2025 Goals (unrecognized section and content) Goals may be documented in a n alternate sectionGoals may be documented in an alternate sectionGoals may be documented in an alternate section FOR RECORDS PERTAINING TO PATIENTS WHO ARE OR HAVE BEEN ENROLLED IN A CHEMICAL DEPENDENCY/SUBSTANCEABUSE PROGRAM, SOME INFORMATION MAY BE OMITTED. This clinical summary was aggregated from multiple sources. Caution should be exercised in using it in the provision of clinical care. This summary normalizes information from multiple sources, and as a consequence, information in this document may materially change the coding, format and clinical context of patient data. In addition, data may be omitted in some cases. CLINICAL DECISIONS SHOULD BE BASED ON THE PRIMARY CLINICAL RECORDS. [facility] [employer] [facility]. provides no warranty or guarantee of the accuracy or completeness of information in this document.
== END | disposition home or self-care (01) ==
LOC: MTRAD 10:24
PROVIDERS: PCP Nurse Practitioner Family; Referring Provider Nurse Practitioner; Visit Provider Nurse Practitioner
DX: S46.811A Strain of other muscles, fascia and tendons at shoulder and upper arm level, right arm, initial encounter (principal); X58.XXXA Exposure to other specified factors, initial encounter
CPT/HCPCS: 72040